=== PATIENT | female | born 2005 | race Native Hawaiian/Other Pacific Islander ===

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

== ENCOUNTER 2023-02-25 09:14 | Outpatient (AMB) | payer MEDICAID, SELFPAY ==
--- NOTE | 2023-02-25 08:30 | A.OFFVIS_ITS ---
Intake VS Expanded 02/25/23 08:33 Height 5 ft 3 in Weight 125 lb BMI 22.1 Intake Visit Reasons: VIDEO PO LSG 04/06/22 Allergies POLLEN Allergy (Intermediate, Uncoded 03/23/22 23:29) Sneezing HPI Nutrition Presentation [place] [facility] [place] Preop weight 207# weight at 3wks PO 184# weight at 5wks 178# weight at 8wks 169 weight at 3.5 months 157# weight 6 MO PO 139# Current weight 125# - she is comfortable at this weight, she has maintained this weight for the last 2 months Reason for consult other (Weight maintenance) Diet Assmnt Details Patient reports feeling great, she has no questions or concerns today. She has a solid understanding of what a healthy nutrition plan looks like post bariatric surgery Breakfast: 2 eggs, slice of bread - patient states the brand I recommended at last appointment but is not sure what it is 1 Fairlife shake or will have a meal wi th protein, vegetable, healthy carb dinner: carrots and veg white rice and chicken Sometimes has a small snack if needed Hydration: 4-5 bottles of water ; she reports her dizziness has subsided since increasing her hydration Vitamins: celebrate MVI daily is consistent with it Exercise: 3-5 days per week bike 400kcal each time or the treadmill, plus weight training as recommended at last appt Diagnosis Nutrition problem #1 overweight/obesity As related to (etiology) #1 excess energy intake and physical inactivity As evidenced by (sign/symptom) #1 high BMI (Improving) Monitoring/Goals Nutrition problem monitoring total energy intake, level of knowledge/skill, total PRO intake, total CHO intake and weight Outcome progress met Learning/Education Readiness to learn excellent Stages of change maintenance Most Recent Diabetes Results: No Data to Display [facility] Surgical History No pertinent past surgical history Family History Mother Asthma Father No problems noted. Brother No problems noted. Brother Asthma Sister Depression Anxiety Social History Household Members: Family Household Members Other:: Mother, 2 brothers Housing: Apartment Are you a primary child care associate teacher to a significant other at home: No Do you presently have visiting nurse or other home services: No Alcohol intake: former Patient Tobacco Use Status: Former Tobacco user Quit Date: 08/2021 Tobacco use type: Cigarette service: No Current occupational status: student Female Reproductive History Menstrual Age of Menarche: 11 Assessment & Plan Assessment & Plan (1) S/P laparoscopic sleeve gastrectomy: Code(s): Z98.84 - Bariatric surgery status Patient Instructions: Patient is in the weight maintenance phase now and able to navigate this on her own. Will schedule next follow-up appointment 6 months from now but patient was encouraged to communicate as needed in the meantime Telehealth Telehealth Location of provider rendering services: practice address Location of patient: address on file (car, not driving, parked ) Patient Identification confirmed using: Name, : Yes Telehealth method: video Patient verbally consented to treatment: Yes Patient verbally consented to billing insurance company: Yes Patient informed of any privacy concerns related to visit: Yes Minutes spent on Phone/Video with Pt.: 10 Coding Level of Care Code Nutr Indiv Subseq ([id number]) Diagnoses S/P laparoscopic sleeve gastrectomy Z98.84 Time Spent (min) 10
[2023-02-25 08:33] VITALS: BMI 22.1
== END 2023-02-25 09:15 | disposition home or self-care (01) ==
LOC: HO.HBS 09:14
PROVIDERS: PCP Pediatrics; Visit Provider Dietitian, Registered
DX: Z98.84 Bariatric surgery status (principal)

== ENCOUNTER → 2023-02-25 09:14 | Outpatient (BNVA) | payer MEDICAID, SELFPAY | PROVIDERS: PCP Pediatrics; Visit Provider Dietitian, Registered | DX: E66.9 Obesity, unspecified (principal); Z98.84 Bariatric surgery status | CPT/HCPCS: 97803 ==

== ENCOUNTER 2023-03-03 13:37 | Outpatient (AMB) | payer MEDICAID, SELFPAY ==
--- NOTE | 2023-03-03 13:41 | MHC.OFFVIS ---
Intake Vital Signs 03/03/23 13:42 Height 5 ft 3 in Weight 122 lb BMI 21.6 BP 100/64 Intake Visit Reasons: Nexplanon Removal Consult Intake Note: patient c/o period lasting 1 month Allergies POLLEN Allergy (Intermediate, Uncoded 03/03/23 13:42) Sneezing Medication List - Last Reconciled 03/03/23 by Kelsey Grewal CNM [celebrate Rajendra +D PO BID] [celebrate mvi PO .qd] etonogestrel (Nexplanon) 68 mg subdermal ONCE Is last menstrual period known: Yes Last menstrual period: 01/14/23 HPI Nexplanon Removal Consult HPI Details Is here because she has been having too much bleeding on the Nexplanon this is her 2nd Nexplanon and she has had this 1 in about a year or so. She bled for about a month earlier in the year and then she bled from mid December to mid January. She is now stopped bleeding. She was sexually active and put up with the bleeding because she needed protection but now she is not sexually active and she would like to just take it out. 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 When I asked her what she would use for control if she became sexually active in the future she said she was considering maybe getting an IUD. Much of the visit was spent discussing contingency plans so that she does not get when she is without a method. Patient eventually decided that she would except the prescription for control pills that she could use if she started having breakthrough bleeding on the Nexplanon again or to start whenever she becomes sexually active. The ideally they would be started at the beginning of a menstrual.. After much discussion of the pros and cons of all methods including pills Depo and both kinds of IUDs and their side effects patient has decided she is wants to take a prescription for control pills that she will have available to her in case she starts bleeding again but we will schedule Nexplanon removal. She also may decide to continue on the pills from there it will be her decision. [facility] Surgical History No pertinent past surgical history Family History Mother Asthma Father No problems noted. Brother No problems noted. Brother Asthma Sister Depression Anxiety Social History Household Members: Family Household Members Other:: Mother, 2 brothers Housing: Apartment Are you a primary date night caregiver to a significant other at home: No Do you presently have visiting nurse or other home services: No Alcohol intake: former Patient Tobacco Use Status: Former Tobacco user Quit Date: 08/2021 Tobacco use type: Cigarette service: No Current occupational status: student Female Reproductive History Menstrual Age of Menarche: 11 Date of last menstrual period: 01/14/23 control method: implanted Physical Exam Vital Signs: Last Vital Signs BP 100/64 03/03/23 13:42 BMI result Body Mass Index 21.6 Const Other: Nexplanon palpable in left arm. Patient has stretch herndon on her arm. She reminded me that she had lost about 100 lb because she had gastric sleeve surgery she lost about 65 lb on her own before the surgery and she has managed to keep off all of the weight and she is eating well and exercising and feeling well. Assessment & Plan Assessment & Plan (1) S/P laparoscopic sleeve gastrectomy: Code(s): Z98.84 - Bariatric surgery status (2) Nexplanon in place: Code(s): Z97.5 - Presence of (intrauterine) contraceptive device (3) control counseling: Code(s): Z30.09 - Encounter for other general counseling and advice on contraception Plan Is here because she has been having too much bleeding on the Nexplanon this is her 2nd Nexplanon and she has had this 1 in about a year or so. She bled for about a month earlier in the year and then she bled from mid December to mid January. She is now stopped bleeding. She was sexually active and put up with the bleeding because she needed protection but now she is not sexually active and she would like to just take it out. 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 When I asked her what she would use for control if she became sexually active in the future she said she was considering maybe getting an IUD. Much of the visit was spent discussing contingency plans so that she does not get when she is without a method. Patient eventually decided that she would except the prescription for control pills that she could use if she started having breakthrough bleeding on the Nexplanon again or to start whenever she becomes sexually active. The ideally they would be started at the beginning of a menstrual.. After much discussion of the pros and cons of all methods including pills Depo and both kinds of IUDs and their side effects patient has decided she is wants to take a prescription for control pills that she will have available to her in case she starts bleeding again but we will schedule Nexplanon removal. She also may decide to continue on the pills from there it will be her decision. She reminded me that she had lost about 100 lb in the past she lost 65 lb on her own before having gastric sleeve surgery and then lost the rest of it after the surgery. She has kept it off and is eating well and exercising and feels very good.. Medications: New desog-e.estradiol/e.estradiol 0.15-0.02 mgx21 /0.01 mg x 5 to start w menses 1 tab PO DAILY 84 tabs 0RF Coding Level of Care Code Est Pt Level 3 (17508) Diagnoses S/P laparoscopic sleeve gastrectomy Z98.[address] Z97.5 control counseling Z30.09
[2023-03-03 13:42] VITALS: BP 100/64; BMI 21.6
== END 2023-03-03 14:11 | disposition home or self-care (01) ==
PROVIDERS: PCP Pediatrics; Visit Provider Advanced Practice Midwife
DX: Z98.84 Bariatric surgery status (principal); Z97.5 Presence of (intrauterine) contraceptive device; Z30.09 Encounter for other general counseling and advice on contraception
CPT/HCPCS: 99213

== ENCOUNTER → 2023-03-03 13:37 | Outpatient (BNVA) | payer MEDICAID, SELFPAY | PROVIDERS: PCP Pediatrics; Visit Provider Advanced Practice Midwife | DX: Z30.09 Encounter for other general counseling and advice on contraception (principal); Z97.5 Presence of (intrauterine) contraceptive device | CPT/HCPCS: 99212 ==

== ENCOUNTER 2023-03-08 10:36 | Outpatient (REF) | payer MEDICAID, SELFPAY ==
[2023-03-08 16:01] LABS: CT PCR NOT DETECTED (Not Detect.); NG PCR NOT DETECTED (Not Detect.)
[2023-03-09 04:06] LABS: Syphilis Screen Nonreactive (Nonreactive)
[2023-03-09 04:26] LABS: HIV AB/AG Nonreactive (Nonreactive); HIV Num 1 0.06 S/CO (0.00-0.99); ~HepC Num1 0.18 S/CO (0.00-0.79); ~Hepatitis C Antibody Nonreactive (Nonreactive)
== END 2023-03-08 10:37 | disposition home or self-care (01) ==
LOC: HO.CHCLDS 10:36
PROVIDERS: Visit Provider Advanced Practice Midwife
DX: Z11.3 Encounter for screening for infections with a predominantly sexual mode of transmission (principal); Z11.4 Encounter for screening for human immunodeficiency virus [HIV]
CPT/HCPCS: 0353U; 86780; 86803; 87389

== ENCOUNTER 2023-07-27 10:53 | Outpatient (AMB) | payer MEDICAID, SELFPAY ==
--- NOTE | 2023-07-27 10:37 | MHC.AMNUTRGE ---
Intake Intake Visit Reasons: (TV) PO LSG 04/06/22 Allergies POLLEN Allergy (Intermediate, Uncoded 03/03/23 13:42) Sneezing HPI Nutrition Presentation Details G 04/06/22 Preop weight 207# weight at 3wks PO 184# weight at 5wks 178# weight at 8wks 169 weight at 3.5 months 157# weight 6 MO PO 139# Current weight 125# - she is comfortable at this weight, she has maintained this weight for the last 6+ months Reason for consult other (Weight maintenance) Diet Assmnt Details Patient reports feeling great, she has no questions or concerns today. She has a solid understanding of what a healthy nutrition plan looks like post bariatric surgery. She is able to alter her intake for the day depending on her preferences and nutritional needs. Breakfast: 2 eggs, slice of bread 1 Fairlife shake or will have a meal with protein, vegetable, healthy carb dinner: carrots and veg white rice and chicken Sometimes has a small snack if needed Hydration: 4-5 bottles of water Vitamins: celebrate MVI daily . she recently went 2 months without her MVI. Has a lab order in the system from November Exercise: 3-5 days per week bike 30-35minutes each time or the treadmill, plus weight training about 15 sets, varies body part Diagnosis Nutrition problem #1 overweight/obesity As related to (etiology) #1 excess energy intake and physical inactivity As evidenced by (sign/symptom) #1 high BMI (Improving) Monitoring/Goals Nutrition problem monitoring total energy intake, level of knowledge/skill, total PRO intake, total CHO intake and weight Outcome progress met Learning/Education Readiness to learn excellent Stages of change maintenance Most Recent Diabetes Results: No Data to Display [facility] Surgical History No pertinent past surgical history Family History Mother Asthma Father No problems noted. Brother No problems noted. Brother Asthma Sister Depression Anxiety Social History Household Members: Family Household Members Other:: Mother, 2 brothers Housing: Apartment Are you a primary veterinarian laboratory animal care to a significant other at home: No Do you presently have visiting nurse or other home services: No Alcohol intake: former Patient Tobacco Use Status: Former Tobacco user Quit Date: 08/2021 Tobacco use type: Cigarette service: No Current occupational status: student Female Reproductive History Menstrual Age of Menarche: 11 Assessment & Plan Assessment & Plan (1) S/P laparoscopic sleeve gastrectomy: Code(s): Z98.84 - Bariatric surgery status Plan get labs done fasting, order is in. Continue exercise. she will f/u with Jose Ramon GAL[facility] Telehealth Telehealth Location of provider rendering services: practice address Location of patient: address on file Patient Identification confirmed using: Name, : Yes Telehealth method: voice only Patient verbally consented to treatment: Yes Patient verbally consented to billing insurance company: Yes Patient informed of any privacy concerns related to visit: Yes Minutes spent on Phone/Video with Pt.: 10 Coding Level of Care Code Nutr Indiv Subseq ([id number]) Diagnoses S/P laparoscopic sleeve gastrectomy Z98.84 Time Spent (min) 10
== END 2023-07-27 10:56 | disposition home or self-care (01) ==
LOC: HO.HBS 10:53
PROVIDERS: PCP Pediatrics; Visit Provider Dietitian, Registered
DX: Z98.84 Bariatric surgery status (principal)

== ENCOUNTER → 2023-07-27 10:53 | Outpatient (BNVA) | payer MEDICAID, SELFPAY | PROVIDERS: PCP Pediatrics; Visit Provider Dietitian, Registered | DX: E66.3 Overweight (principal); Z71.3 Dietary counseling and surveillance; Z98.84 Bariatric surgery status | CPT/HCPCS: 97803 ==

== ENCOUNTER 2023-10-12 11:08 | Outpatient (AMB) | payer MEDICAID, SELFPAY ==
--- NOTE | 2023-10-12 09:56 | A.OFFVIS_ITS ---
VS Expanded 10/12/23 10:00 Height 5 ft 3 in Weight 120 lb 6.4 oz BMI 21.3 Body Fat % 21.3 Body Fat Mass 25.6 Fat Free Mass 94.8 Visceral Fat Rating 4 Body Water % 54 Body Water Mass 65 Muscle Mass/Score 89 Basal Metabolic Rate/Score 1,299 Intake Visit Reasons: (tv) PO LSG 04/06/22 Lubricating Machine Tender Required: No Allergies POLLEN Allergy (Intermediate, Uncoded 03/03/23 13:42) Sneezing Medication List - Last Reconciled 10/12/23 by EL Thompson [celebrate Rajendra +D PO BID] [celebrate mvi PO .qd] desog-e.estradiol/e.estradiol 0.15-0.02 mgx21 /0.01 mg x 5 1 tab PO DAILY etonogestrel (Nexplanon) 68 mg subdermal ONCE HPI Comments Details: 18-year-old female status post sleeve gastrectomy performed on 04/06/2022 returns to the office for 1 year six-month postop follow-up. Weight today is 120.4 lb with a BMI of 21.3. Her initial weight on 12/15/2021 was 241.4 lb. Operative weight was 209.4 lb. She has lost 121 lb or 50.1% total body weight loss since presenting to the program in November of 2021. She has lost 89 lb or 42.5% total body weight loss since surgery. Taking bariatric mvi States that her weight has been stable over the last month. She is happy with the weight she is at. She did not get labs done from November. Meal plan: 2 eggs w 2 sausage belvita snack bar 3 gm pro or fairlife 26 gm rtd shake meal protein and veg not measuring fruit (berries) Drinking 48-64 oz water Exercise plan: PF cardio-treadmill, 20 min, 100 calories PFSH Surgical History No pertinent past surgical history Family History Mother Asthma Father No problems noted. Brother No problems noted. Brother Asthma Sister Depression Anxiety Social History Household Members: Family Household Members Other:: Mother, 2 brothers Housing: Apartment Are you a primary health care recruiter to a significant other at home: No Do you presently have visiting nurse or other home services: No Alcohol intake: former Patient Tobacco Use Status: Former Tobacco user Tobacco use type: Cigarette service: No Current occupational status: student Female Reproductive History Menstrual Age of Menarche: 11 Telehealth Telehealth Telehealth Platform: Telephone Location of provider rendering services: practice address Location of patient: address on file Patient Identification confirmed using: Name, : Yes Telehealth method: voice only Patient verbally consented to treatment: Yes Patient verbally consented to billing insurance company: Yes Patient informed of any privacy concerns related to visit: Yes Minutes spent on Phone/Video with Pt.: 15 Assessment & Plan Assessment & Plan (1) S/P laparoscopic sleeve gastrectomy: Code(s): Z98.84 - Bariatric surgery status Category: Surgical Plan: Encouraged patient to get labs done that were ordered in November. Encouraged her to have vegetables in the morning instead of pearce or sausage. Encouraged the fair life ready to drink shake mid day. Encouraged measuring food portion and avoiding rice or potatoes. Encouraged increased cardiovascular activity and tracking calories with a goal of 250-300 per day. Encouraged to text weekly her weight and with any questions or concerns.
[2023-10-12 10:00] VITALS: BMI 21.3
== END 2023-10-12 11:14 | disposition home or self-care (01) ==
LOC: HO.HBS 11:08
PROVIDERS: PCP Pediatrics; Visit Provider Physician Assistant Surgical
DX: Z71.3 Dietary counseling and surveillance (principal); Z90.3 Acquired absence of stomach [part of]; Z98.84 Bariatric surgery status
CPT/HCPCS: 99213

== ENCOUNTER → 2023-10-12 11:08 | Outpatient (BNVA) | payer MEDICAID, SELFPAY | PROVIDERS: PCP Pediatrics; Visit Provider Physician Assistant Surgical ==

== ENCOUNTER 2023-10-24 09:10 | Outpatient (REF) | payer MEDICAID, SELFPAY ==
[2023-10-24 09:24] LABS: MANUAL DIFF FLAG NO
[2023-10-24 09:57] LABS: Basophils Percent Auto 0.6 % (0-2); Eosinophils Absolute Auto 0.1 X10*3/uL (0.0-0.4); Eosinophils Percent Auto 1.7 % (0-4); Hematocrit 42.1 % (37.0-47.0); Hemoglobin 13.6 g/dl (12.0-16.0); Imm Gran Abs Auto 0.01 X10*3/uL (0.00-0.03); Imm Gran Pct Auto 0.2 % (0.0-0.4); Lymphocytes Absolute Auto 1.8 X10*3/uL (1.2-4.9); Lymphocytes Percent Auto 37.8 % (20-40); Mean Corpuscular HGB Conc 32.3 g/dl (31.0-35.0); Mean Corpuscular Hemoglobin 27.5 pg (27.0-33.0); Mean Corpuscular Volume 85.2 fL (80.0-98.0); Mean Platelet Volume 8.4 fL (9.4-12.3); Monocytes Absolute Auto 0.4 X10*3/uL (0.1-1.2); Monocytes Percent Auto 8.3 % (2-11); Neutrophils Absolute Auto 2.5 x10*3/uL (2.0-8.3); Neutrophils Percent Auto 51.4 % (45-73); Platelet Count 326 X10*3/uL (160-400); Red Blood Count 4.94 X10*6/uL (4.20-5.50); Red Cell Distribution Width 12.6 % (11.0-16.0); White Blood Count 4.8 X10*3/uL (4.8-10.8)
[2023-10-24 10:06] LABS: Estimated Average Glucose 97 mg/dL
[2023-10-24 10:36] LABS: Alanine Aminotransferase 11 U/L (0-31); Albumin Level 4.5 g/dL (3.5-5.0); Alkaline Phosphatase 54 U/L (39-117); Anion Gap 15 (12-20); Aspartate Amino Transferase 16 U/L (5-31); Bilirubin Total 1.5 mg/dL (0.0-1.0); Blood Urea Nitrogen 9 mg/dL (9-16); C Reactive Protein < 0.10 mg/dL (< or = 0.50); Calcium 9.4 mg/dL (8.4-10.2); Carbon Dioxide 28 mmol/L (22-29); Chloride 102 mmol/L (96-108); Cholesterol 144 mg/dL (<200); Estimated Glomerular Filt Rate > 60; Glucose Random 80 mg/dL (60-115); HDL Cholesterol 71 mg/dL (>40); Iron 130 mcg/dL (30-160); LDL Cholesterol Calculated 64 mg/dL (<100); Percent Iron Saturation 50 % (15-50); Potassium 3.7 mmol/L (3.3-5.1); Sodium 141 mmol/L (135-145); Total Iron Binding Capacity 260 mcg/dL (228-428); Total Protein 7.5 g/dL (6.5-8.0); Triglycerides 45 mg/dL (<150); Unsaturated Iron Binding 130 ug/dL
[2023-10-24 10:53] LABS: Ferritin 103 ng/mL (10-122); TSH reflex Free T4 0.78 uIU/mL (0.32-4.0); Vitamin D 25-OH Total 36.3 ng/mL (>30)
[2023-10-24 11:14] LABS: Insulin 9 uU/mL (2-29)
[2023-10-24 11:53] LABS: Folate 13.4 ng/mL (> or = 4.0); Vitamin B12 529 pg/mL (200-900)
[2023-10-27 08:56] LABS: Zinc 67 mcg/dL (60-130)
[2023-10-28 13:47] LABS: Vitamin A 39 mcg/dL (38-98)
[2023-11-01 17:38] LABS: Vitamin B1 10 nmol/L (8-30)
== END 2023-10-24 09:11 | disposition home or self-care (01) ==
LOC: HO.LAB 09:10
PROVIDERS: Visit Provider Physician Assistant Surgical
DX: Z98.84 Bariatric surgery status (principal)
CPT/HCPCS: 36415; 80053; 80061; 82306; 82607; 82728; 82746; 83036; 83525; 83540; 84425; 84443; 84590; 84630; 85025; 86140

== ENCOUNTER 2024-01-24 22:22 | Emergency (ER) | payer OTHER, MEDICAID, SELFPAY ==
[2024-01-24 22:24] VITALS: BP 112/76; PULSE 64; RESP 16; TEMP 36.7; O2SAT 98; BMI 20.4
--- NOTE | 2024-01-24 23:26 | ED.HEATRA ---
HPI - Head Injury General Chief complaint: Wound/Laceration Stated complaint: head laceration Time Seen by Provider: 01/24/24 22:55 Source: patient Mode of arrival: ambulatory Limitations: no limitations History of Present Illness HPI Narrative: Patient is a 18-year-old female presents emergency department for evaluation. She has a care provider at a local [facility], she reports that she was attempting to adjusted bed that requires a metal hand crank, it suddenly came loose and she accidentally struck be top of head with it. She denies any loss consciousness. She endorses having some localized discomfort. No active bleeding. She denies use of anticoagulants or known coagulation disorders. Denies dizziness, lightheadedness, vision changes, neck pain, neck stiffness. Reports she had a tetanus vaccination within the past 5 years. Related Data Home Medications ?Medication ?Instructions ?Recorded ?Confirmed etonogestrel 68 mg subdermal 68 mg subdermal ONCE 10/05/21 10/12/23 implant (Nexplanon) celebrate Rajendra +D PO BID 12/03/22 10/12/23 celebrate mvi PO .qd 12/03/22 10/12/23 Previous Rx's ?Medication ?Instructions ?Recorded desogestrel-e.estradiol 0.15 1 tab PO DAILY #84 tabs 03/03/23 mg-0.02 mg(21)/e.estrad 0.01 mg(5) tablet Allergies Allergy/AdvReac Type Severity Reaction Status Date / Time POLLEN Allergy Intermediate Sneezing Uncoded 01/24/24 22:26 Review of Systems Review of Systems: Yes all other systems are reviewed and are negative PMFSH Past Medical History Attestation statement: The following information was validated with the patient. Source: old records reviewed Surgical History No pertinent past surgical history Family History Family History Mother Asthma Father No problems noted. Brother No problems noted. Brother Asthma Sister Depression Anxiety Social History Social History Household Members: Family Household Members Other:: Mother, 2 brothers Housing: Apartment Are you a primary acute care nursing assistant to a significant other at home: No Do you presently have visiting nurse or other home services: No Alcohol intake: former Patient Tobacco Use Status: Former Tobacco user Tobacco use type: Cigarette Advance Directives: No Advance Directives Information Provided: No Do you have a plan to hurt others: No Plan service: No Current occupational status: student Physical Exam Vital Signs: Vital Signs: Last Vital Signs Temp 98.1 F 01/24/24 22:24 Pulse 64 01/24/24 22:24 Resp 16 01/24/24 22:24 BP 112/76 01/24/24 22:24 Pulse Ox 98 01/24/24 22:24 O2 Del Method Room Air 01/24/24 22:24 BMI result Body Mass Index 20.4 Appearance: Alert.?Oriented to person, place and time. No acute distress.?Normal affect. Head: Normocephalic. 0.3 cm laceration to right frontotemporal scalp with no active bleeding over a hematoma Eyes: Pupils equal, round and reactive to light. EOMI. Conjunctiva and sclera normal? No Gastelum sign noted. No raccoon eyes noted ENT: No septal hematoma, nares patent bilaterally. External auditory canal normal tympanic membrane pearly jara and intact bilaterally. Dentition normal, no fractured teeth. No lesions or lacerations of oropharynx. Uvula midline. Moist mucous membranes. Neck: Normal inspection.? Neck supple.??No palpable tenderness, step-off, deformities. CVS: Heart sounds normal. Normal heart rate and rhythm.? Pulses normal.?? Respiratory: No respiratory distress.? Lung sounds clear to auscultation bilaterally?? Skin: Skin warm and dry.? Normal skin color.? Extremities: No lower extremity edema.? Neuro: Moves all extremities spontaneously. Sensation intact bilaterally. CN II-XII intact. No focal neuro deficits. Medications Administered Discontinued Medications Generic Name Dose Route Start Last Admin Trade Name Freq PRN Reason Stop Dose Admin Acetaminophen 975 mg 01/24/24 22:29 01/24/24 23:41 Acetaminophen 325 Mg Tablet PO 01/24/24 22:30 975 mg ONCE ONE Administration Medical Decision Making Medical Decision Making [facility] Narrative: Patient is a 18-year-old female who presents emergency department for evaluation after head injury as per HPI. No loss of consciousness. No focal neurological deficits. Has a small scalp laceration overlying a hematoma, that does not require repair with yohana or sutures at this time. No active bleeding. Tetanus vaccination is up-to-date. Coch[place] CT head rule negative, would defer CT imaging at this time, unlikely ICH, SDH, no palpable skull fracture, states was not a hard strike to the head.. Discussed strict return precautions, signs and symptoms of concussion to monitor for, outpatient follow-up with PCP/workman's comp. All questions answered. Stable for discharge Differential Diagnosis Differential Diagnoses: The differential diagnosis associated with the presentation includes (See narrative above) External Record Review External record reviewed: Outpatient record Tests considered The following testing was considered but not selected: See narrative above Prescription Management I considered prescription management with: Pain Medication (Acetaminophen/ibuprofen) Discharge Plan Discharge Clinical Impression: Acute head injury without loss of consciousness, Contusion of scalp Patient Disposition: Home, Self-Care Instructions: Head Injury (ED), Scalp Contusion in Adults (ED) Prescriptions: No Action Nexplanon 68 mg implant 68 mg subdermal ONCE celebrate mvi PO .qd celebrate Rajendra +D PO BID desog-e.estradiol/e.estradiol 0.15-0.02 mgx21 /0.01 mg x 5 tablet 1 tab PO DAILY Qty: 84 0RF Rx Instructions: to start w menses Referrals: Physician,Unknown J [Primary Care Provider] - Print Language: [place]
[2024-01-24] MEDS: Acetaminophen 325 MG TABLET 975 MG PO (23:41)
[2024-01-25] VITALS: BP 100/61; PULSE 53; RESP 16; TEMP 36.6; O2SAT 100
[2024-01-25 00:44] VITALS: BP 100/61; PULSE 53; RESP 16; TEMP 36.6; O2SAT 100
== END 2024-01-25 01:09 | disposition home or self-care (01) ==
PROVIDERS: Emergency Provider Emergency Medicine Emergency Medical Services
DX: S00.03XA Contusion of scalp, initial encounter (principal); S09.90XA Unspecified injury of head, initial encounter; R51.9 Headache, unspecified; Y29.XXXA Contact with blunt object, undetermined intent, initial encounter; Y93.89 Activity, other specified; Y92.89 Other specified places as the place of occurrence of the external cause; Y99.8 Other external cause status; Z79.899 Other long term (current) drug therapy; Z87.891 Personal history of nicotine dependence
CPT/HCPCS: 99283

== ENCOUNTER 2024-04-11 14:23 | Outpatient (AMB) | payer MEDICAID, SELFPAY ==
--- NOTE | 2024-04-11 14:25 | MHC.OFFVISWM ---
VS Expanded 04/11/24 14:35 BP 109/59 L Blood Pressure Location Rt brachial Blood Pressure Position Sitting Pulse 72 Pulse Source Pulse Oximeter Temp 96.2 F L Temperature Source Temporal Artery Scan Pulse Oximetry 100 Oxygen Delivery Method Room Air Height 5 ft 3 in Weight 118 lb 12.8 oz BMI 21.0 Body Fat % 23.0 Body Fat Mass 27.4 Fat Free Mass 91.2 Visceral Fat Rating 1.0 Body Water % 55.6 Body Water Mass 66.0 Muscle Mass/Score 86.6 Basal Metabolic Rate/Score 1,296 Intake Visit Reasons: (ov) PO LSG 04/06/22 Computer Field Technician Required: No Allergies POLLEN Allergy (Intermediate, Uncoded 01/24/24 22:26) Sneezing Medication List - Last Reconciled 04/11/24 by EL Thompson [celebrate Rajendra +D PO BID] [celebrate mvi PO .qd] HPI Comments Details: 18-year-old female status post sleeve gastrectomy performed on 04/06/2022 returns to the office for 2 year postop follow-up. Weight today is 118.8 lb with a BMI of 21. Her initial weight on 12/15/2021 was 241.4 lb. Operative weight was 209.4 lb. She has lost 122.6 lb or 50.7% total body weight loss since presenting to the program in November of 2021. She has lost 90.6 lb or 43.2% total body weight loss since surgery. Taking bariatric mvi States that her weight has been stable over the last month. She is happy with the weight she is at. She is eating more vegetables. Overall doing very well and has no complaints today. Meal plan: 2 eggs w 2 sausage belvita snack bar 3 gm pro or fairlife 26 gm rtd shake lunchables protein, rice, chicken, pasta, salad fruit (berries) Drinking 48-64 oz water Exercise plan: PF cardio-treadmill, 5 days per week, weights and treadmill/bike, 250 calories Any post op complications: none AVERY: never DM: never HTN: never Hyperlipidemia: never GERD:?0-5 scale ??0 = no symptoms ??1 = symptoms noticeable but not bothersome 2 =symptoms bothersome but not daily ? 3 = symptoms bothersome and daily 4 = symptoms affect daily activities 5 = symptoms are incapacitating, unable to do daily activities ? How bad is the heartburn: 0 ? Heartburn while lying down: 0 ? Heartburn when standing up: 0 ? Heartburn after meals: 0 ? Does heartburn change your diet: 0 ? Does heartburn wake you up from sleep: 0 ? Do you have difficulty swallowin ? Do you have pain with swallowin ? If you take medicine for your reflux, does this affect your daily life: 0 Satisfaction with present condition - satisfied or not satisfied: satisfied [facility] Surgical History (Updated 04/11/24 @ 14:30 by Fang Garza CMA) S/P laparoscopic sleeve gastrectomy Family History Mother Asthma Father No problems noted. Brother No problems noted. Brother Asthma Sister Depression Anxiety Social History Household Members: Family Household Members Other:: Mother, 2 brothers Housing: Apartment Are you a primary assurance services manager health care to a significant other at home: No Do you presently have visiting nurse or other home services: No Alcohol intake: former Patient Tobacco Use Status: Former Tobacco user Tobacco use type: Cigarette service: No Current occupational status: student Female Reproductive History Menstrual Age of Menarche: 11 Physical Exam Const General: cooperative and no acute distress Orientation/consciousness: patient oriented x3 Resp Effort & Inspection: normal respiratory effort Auscultation: clear to auscultation bilaterally Cardio Rate: regular rate Rhythm: regular rhythm GI Inspection: Yes normal to inspection and Yes incision (well healed) Palpation (GI): Soft to palpation and no masses Neuro General: patient oriented x3 Assessment & Plan Assessment & Plan (1) S/P laparoscopic sleeve gastrectomy: Code(s): Z98.84 - Bariatric surgery status Category: Surgical Plan: Patient is doing very well. She has achieved and maintained a healthy weight. Continue current meal plan. Follow-up in the office in 1 year. I have ordered yearly labs. Encouraged to text with any questions or concerns. Orders: Orders Insulin Today E53.8 - Deficiency of other specified B group vitamins, Z98.84 - Bariatric surgery status Hemoglobin A1c Today E53.8 - Deficiency of other specified B group vitamins, Z98.84 - Bariatric surgery status Comprehensive Met. Panel Today E53.8 - Deficiency of other specified B group vitamins, Z98.84 - Bariatric surgery status Zinc Today E53.8 - Deficiency of other specified B group vitamins, Z98.84 - Bariatric surgery status Vitamin A Today E53.8 - Deficiency of other specified B group vitamins, Z98.84 - Bariatric surgery status TSH reflex Free T4 Today E53.8 - Deficiency of other specified B group vitamins, Z98.84 - Bariatric surgery status Ferritin Today E53.8 - Deficiency of other specified B group vitamins, Z98.84 - Bariatric surgery status Vitamin D 25-OH Total Today E53.8 - Deficiency of other specified B group vitamins, Z98.84 - Bariatric surgery status Complete Blood Count Auto Diff Today E53.8 - Deficiency of other specified B group vitamins, Z98.84 - Bariatric surgery status Lipid Panel Today E53.8 - Deficiency of other specified B group vitamins, Z98.84 - Bariatric surgery status IRON PROFILE Today E53.8 - Deficiency of other specified B group vitamins, Z98.84 - Bariatric surgery status Vitamin B12 and Folate Today E53.8 - Deficiency of other specified B group vitamins, Z98.84 - Bariatric surgery status C Reactive Protein Today E53.8 - Deficiency of other specified B group vitamins, Z98.84 - Bariatric surgery status Vitamin B1 Today E53.8 - Deficiency of other specified B group vitamins, Z98.84 - Bariatric surgery status
[2024-04-11 14:35] VITALS: BP 109/59; PULSE 72; TEMP 35.7; O2SAT 100; BMI 21.0
== END 2024-04-11 14:46 | disposition home or self-care (01) ==
PROVIDERS: PCP Pediatrics; Visit Provider Physician Assistant Surgical
DX: E53.8 Deficiency of other specified B group vitamins (principal); Z98.84 Bariatric surgery status
CPT/HCPCS: 99213

== ENCOUNTER → 2024-04-11 14:23 | Outpatient (BNVA) | payer MEDICAID, SELFPAY | PROVIDERS: PCP Pediatrics; Visit Provider Physician Assistant Surgical | DX: E53.8 Deficiency of other specified B group vitamins (principal); Z71.3 Dietary counseling and surveillance; Z98.84 Bariatric surgery status | CPT/HCPCS: 99212 ==

== ENCOUNTER 2024-06-08 09:21 | Outpatient (REF) | payer MEDICAID, SELFPAY ==
--- OUTSIDE RECORDS SUMMARY | 2024-06-08 11:39 | XMS_ITS | Encounter Summary ---
Author Organization [employer] Address [address] [place] [address] Care Team Providers Care Nurse Infection Control Name Role Phone Barbi Barkley NP Primary Care Provider [phone] Encounter Details Date Type Department Care Team (Latest Contact Info) Description 06/01/2024 Travel Social History Tobacco Use Types Packs/Day Years Used Date Smoking Tobacco: Never Smokeless Tobacco: Never Alcohol Use Standard Drinks/Week Comments Yes 0 (1 standard drink = 0.6 oz pur e alcohol) occasionally on holidays Depression Answer Date Recorded Patient Health Questionnaire-9 Score 8 02/15/2024 Patient Health Questionnaire-9 Score 8 02/15/2024 Last PHQ-9: Questionnaire Data Not on file 1 Housing Stability Answer Date Recorded What is your housing situation today? I have lynne bhatti 02/07/[address] you li ve. Do you have problems with any of the following? None of the above 02/07/2024 Food Insecurity Answer Date Recorded Within the past 12 months, y ou worried that your food would run out before you got money to buy more: Never True 02/07/2024 Within the past 12 months,th e food you bought just didn't last and you didn't have enough money to get more: Never True 12/2023 Transportation Answer Date Recorded In the past 12 months, has l ack of transportation kept you from medical appts, meetings, work or from getting things needed for daily living? No 02/07/2024 Utilities Answer Date Recorded In the past 12 months, has t he electric, gas, oil or water company threatened to shut off services in your home? No 02/07/2024 Depression Answer Date Recorded Patient Health Questionnaire-2 Score 2 02/15/2024 Internet Access Answer Date Recorded Internet Access Q1 Yes 02/07/2024 Internet Access Q2 Not on file 02/07/2024 Comments No Sex and Gender Information Value Date Recorded Sex Assigned at Female 03/01/2022 10:19 AM EDT Legal Sex Female 10:19 AM EDT Gender Identity Female 03/01/2022 10:19 AM EDT Sexual Orientation Straight 03/01/2022 10 :19 AM EDT documented as of this encounter Plan of Treatment Upcoming Encounters Date Type Department Care Team (Late st Contact Info) Description 08/17/2024 11:00 AM EDT Office Visit [facility] [address] [place] [address] Barbi Barkley NP [address] [place] [address] documented as of this encounter Visit Diagnoses Not on filedocumented in this encounter Additional Health Concerns Assessment Noted Time PHQ-9 Depression Total Score: 8 02/15/20 24 3:01 PM EDT documented as of this encounter Care Teams Nurse Infection Control Relationship Specialty Start Date End Date Barbi Barkley NP [address] [place] [address] PCP - General Family Medicine 02/24/23 documented as of this encounter
--- OUTSIDE RECORDS SUMMARY | 2024-06-08 11:40 | XMS_ITS | Clinical Summary ---
Demographics Address [address] [place] [address] Mobile Phone Work Phone Home Phone Email Address Preferred Language en Marital Status Single Jainism Affiliation Unknown Race Other Race Ethnic Group or Author Organization [employer] Address [address] [place] [address] Care Team Providers Care Medical Scientific Liaison Name Role Phone Barbi Barkley NP Primary Care Provider [phone] Allergies No known active allergies Medications No known medications Active Problems Problem Noted Date Diagnosed Date Routine health maintenance 05/03/2024 Assessment & Plan (05/03/2024 11:38 AM EST): -age appropriate screening and immunizations up to date (STI screening) -low cardiovascular risk -mental health screening positive for depression and anxiety -healthy social behaviors encouraged -anticipatory guidance reviewed: diet, exercise Dizziness 05/03/2024 Assessment & Plan (05/03/2024 11:37 AM EST): -etiology is unclear -labs ordered to determine probable cause -encouraged to consume healthy meals 3x per day and maintain adequate fluid intake -advised slow position changes -continual monitoring advised with detailed attention to events preceding her symptoms -further work up/intervention pending lab results Anxiety and depression 05/03/2024 Assessment & Plan (05/03/2024 11:40 AM EST): -Patient Health Questionnaire-9 Score: 8 (02/15/2024 3:01 PM) Patient Health Questionnaire-2 Score: 2 (02/15/2024 3:01 PM) Thoughts that you would be better off or hurting yourself in some way: Not at all (02/15/2024 3:01 PM) -APPLE-7 Total Score: 6 (02/15/2024 3:01 PM) -patient declined further intervention at this time -discussed benefits of engaging in gentle yoga practices, meditation, deep breathing and journaling along with physical activity to aid in symptom improvement -follow-up 6 months or sooner as needed Allergic rhinitis 03/14/2012 06/01/2023 Encounters Date Type Department Care Team Description 06/01/2024 9:45 AM EST Office Visit [facility] [address] [place] [address] Radha Preston, OD 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C (98.8 ??F) 02/15/2024 2:11 PM ED T Respiratory Rate 22 02/15/2024 2:11 PM EDT Oxygen Saturation 92% 02/15/2024 2:11 PM EDT Inhaled Oxygen Concentration - - Weight 52.3 kg (115 lb 6.4 oz) 02/15/2024 2:11 P M EDT Height 160 cm (5' 3 ) 02/15/2024 2:11 PM EDT Body Mass Index 20.44 02/15/2024 2:11 PM EDT Plan of Treatment Upcoming Encounters Date Type Department Care Team (Late st Contact Info) Description 08/17/2024 11:00 AM EDT Office Visit [facility] [address] [place] [address] Barbi Barkley NP [address] [place] [address] Health Maintenance Due Date Last Done Comments Family Planning (PISQ) 2018 COVID-19 Vaccine ( season) 2024 11/18/2020, 10/28/2020 Chlamydia and Gonorrhea Screening 03/08/2024 03/08/2023 Pap Smear 2024 SDOH Screening 02/06/2025 02/07/2024 Alcohol/Substance Use Screening 02/14/2025 02/15/2024 Depression Screening 02/14/2025 02/15/2024, 02/15/20 24 DTaP/Tdap/Td Vaccines (7 - Td or Tdap) 05/28/2025 05/28/2015, 01/26/2008, 08/02/2005, Additional history exists Tobacco Screening 06/01/2025 06/01/2024 Lipid Panel 06/19/2025 06/19/2020 Zoster Vaccines (1 of 2) 2053 RSV Patients and Patients Aged 60 years or older (1 - 1-dose 75+ series) 2078 Hepatitis B Vaccines Completed 07/29/2004, 2003, 2003 HIB Vaccines Completed 10/30/2004, 08/31, 2003 Pneumococcal Vaccine: Pediatrics (0 to 5 Years) and At-Risk Patients (6 to 49) Years) Aged Out 10/30/2004, 2003 No longer eligibl e based on patient's age to complete this topic IPV Vaccines Completed 01/26/2008, 07/02, 2003, Additional history exists Hepatitis A Vaccines Completed 03/16/2013, 01/28/20 10 HPV Vaccines Completed 05/28/2015, 04/01, 03/16/2013 Meningococcal Vaccine Completed 05/13/2020, 016 HIV Screening Completed 03/08/2023 Hepatitis C Screening Completed 03/08/2023 Influenza Vaccine Completed 02/15/2024, , 02/13/2020, Additional history exists RSV under 20 months Aged Out No longe r eligible based on patient's age to complete this topic Rotavirus Vaccines Aged Out No longer eligible based on patient's age to complete this topic Procedures Procedure Name Priority Date/Time Associated Diagnosis Comments HEPATITIS C AB W/REFL TO HCV RNA, QN, PCR Routine 03/08/2023 10:46 AM EST Encntr screen for infections w sexl mode of transmiss HIV 1/2 ANTIGEN/ANTIBODY, FOURTH GENERATION W/RFL Routine 03/08/2023 10:46 AM EST Encntr screen for infections w sexl mode of transmiss CHLAMYDIA/N. GONORRHOEAE RNA, TMA, UROGENITAL Routine 03/08/2023 10:31 AM EST Encntr screen for infections w sexl mode of transmiss LIPID PANEL, STANDARD Routine 06/19/2020 1:04 PM EST from Last 3 Months or Most Recently Relevant to Health Maintenance Results * Hepatitis C Antibody with Reflex to HCV, RNA, Quantitative, Real-Time PCR (03/08/2023 10:46 AM EST) Hepatitis C Antibody Nonreactive Nonreactive [facility] Comment:Antibodies to HCV no t detected; does not exclude early acuteHCV infection. Blood Venous blood specimen / Unknown 03/08/2023 10:46 AM EST 03/08/2023 2:25 PM EST Lory GRANT LAB BLOOD ORDERABLES Katharina zabala Result [facility] [address] [place] [phone] * HIV-1/2 Antigen and Antibodies, Fourth Generation, with Reflexes (03/08/2023 10:46 AM EST) HIV AB/AG Nonreactive Nonreactive [facility] Comment:HIV-1 p24 Ag and/or HIV-1/HIV-2 Ab not detected.A test result that is nonreactive does not exclude thepossibility of exposure to or infection with HIV-1 and/orHIV-2. Nonreactive results in this assay for individualswith prior exposure to HIV-1 and/or HIV-2 may be due toantigen and antibody levels that are below the limit ofdetection of this assay.The Cuciniale HIV Ag/Ab Combo assay result andsupplemental assay results should be interpreted inconjunction with the patient's clinical presentation,history and other laboratory results. If the results areinconsistent with clinical evidence, additional testing issuggested to confirm the result. Blood Venous blood specimen / Unknown 03/08/2023 10:46 AM EST 03/08/2023 2:25 PM EST Lory GRANT LAB BLOOD ORDERABLES Katharina zabala Result [facility] [address] [place] [address] [phone] * Chlamydia/N. Gonorrhoeae RNA, TMA, Urogenitial (03/08/2023 10:31 AM EST) CT PCR NOT DETECTED Not Detect. [facility] Comment:A not detected test result does not exclude the possibilityof infection because test results can be affected byimproper specimen collection, concurrent antibiotic therapy,or the number of organisms in the specimen which may bebelow the sensitivity of the test. As with many diagnostictests, results from the Xpert CT/NG assay should beinterpreted in conjunction with other laboratory andclinical data available to the clinician.Xpert CT/NG performance has not been evaluated in patientsless than 14 years of age. The assay should not be used forthe evaluationof suspected sexual abuse or for other medico-legalindications. Additional testing is recommended in anycircumstance when false positive or false negative resultscould lead to adverse medical, social or psychologicalconsequences. NG PCR NOT DETECTED Not Detect. [facility] Comment:A not detected test result does not exclude the possibilityof infection because test results can be affected byimproper specimen collection, concurrent antibiotic therapy,or the number of organisms in the specimen which may bebelow the sensitivity of the test. As with many diagnostictests, results from the Xpert CT/NG assay should beinterpreted in conjunction with other laboratory andclinical data available to the clinician.Xpert CT/NG performance has not been evaluated in patientsless than 14 years of age. The assay should not be used forthe evaluationof suspected sexual abuse or for other medico-legalindications. Additional testing is recommended in anycircumstance when false positive or false negative resultscould lead to adverse medical, social or psychologicalconsequences. Urine (Urine, Random) 03/08/2023 10:31 AM EST 03/08/2023 2:23 PM EST Narrative [facility] - 03/08/2023 4:01 PM EST Urine us Lory Shi [facility] MICROBIOLOGY - GENERA L ORDERABLES Final Result Performing Organization Address [facility]/ZIP Co de Phone Number [facility] [address] [place] [address] [phone] * (ABNORMAL) LIPID PANEL, STANDARD (06/19/2020 1:04 PM EST) Chol/HDLC Ratio 3.3 <5.0 (calc) [facility] Cholesterol, Total 174(H) <170 mg/dL [facility] HDL Cholesterol 53 >45 mg/dL [facility] LDL Cholesterol 100 <110 mg/dL (calc) [facility] Comment: LDL-C is now calculated using the Jose ?? calculation, which is a validated novel method providing ?? better accuracy than the Friedewald equation in the ?? estimation of LDL-C. ?? Fan BENZ et al. KEON. 2013;310(19): 6480-6027 ?? (http://education.Creactives/faq/LVD136) Non-HDL Cholesterol 121(H) <120 mg/dL (calc) [facility] Comment: For patients with diabetes plus 1 major ASCVD risk ?? factor, treating to a non-HDL-C goal of <100 mg/dL ?? (LDL-C of <70 mg/dL) is considered a therapeutic ?? option. Triglycerides 109(H) <90 mg/dL [facility] 06/19/2020 1:04 PM EST us Pepe Jack MD LAB BLOOD ORDERABLES Final Resu lt [facility] [address] from Last 3 Months or Most Recently Relevant to Health Maintenance [facility] Care Teams Medical Scientific Liaison Relationship Specialty Start Date End Date Barbi Barkley NP [address] [place] [phone] PCP - General Family Medicine 02/24/23
--- OUTSIDE RECORDS SUMMARY | 2024-06-08 11:40 | XMS_ITS | Encounter Summary ---
Author Organization [employer] Address [address] [place] [address] Care Team Providers Care Manual Machinist Name Role Phone Barbi Barkley NP Primary Care Provider [phone] Encounter Details Date Type Department Care Team (Latest Contact Info) Description 05/26/2024 Travel Social History Tobacco Use Types Packs/Day [...] Description 08/17/2024 11:00 AM EDT Office Visit [facility] [address] [place] [address] Barbi Barkley NP [address] [place] [address] documented as of this encounter Visit Diagnoses Not on filedocumented in this encounter Additional Health Concerns Assessment Noted Time PHQ-9 Depression Total Score: 8 02/15/20 24 3:01 PM EDT documented as of this encounter Care Teams Manual Machinist Relationship Specialty Start Date End Date Barbi Barkley NP [address] [place] [address] PCP - General Family Medicine 02/24/23 documented as of this encounter
--- OUTSIDE RECORDS SUMMARY | 2024-06-08 11:40 | XMS_ITS | Encounter Summary ---
Author Organization [employer] Address [address] [facility] [address] [place] [address] Care Team Providers Care Time Clock Inspector Name Role Phone Filippo Barbi JARRED Primary Care Provider [phone] Encounter Details Date Type Department Care Team (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 female. HPI Patient requests ocular health assessment both eyes (OU). Pt denies any visual or ocular concerns CHAZ: 4+ years Last edited by Radha Preston, MARK on 06/01/2024 1:11 PM. No current outpatient medications on file. No current facility-administered medications for this visit. Past Medical History: Diagnosis Date Status post sleeve gastrectomy 05/07/2022 Past Surgical History: Procedure Laterality Date SLEEVE GASTROPLASTY 04/2022 Family History Family history unknown: Yes Tobacco Use: Low Risk (06/01/2024) Tobacco Smoking Tobacco Use: Never Smokeless Tobacco Use: Never Passive Exposure: Not on file No Known Allergies ROS Positive for: Eyes Negative for: Constitutional, Gastrointestinal, Neurological, Skin, Genitourinary, Musculoskeletal,HENT, Endocrine, Cardiovascular, Respiratory, Psychiatric, Allergic/Imm, Heme/Lymph Last edited by Radha Preston, MARK on 06/01/2024 9:57 AM. Base Eye Exam Visual Acuity (Snellen - Linear) Right Left Dist sc 20/20 20/20 Tonometry ([facility] , 10:06 AM) Right Left Pressure 19 21 Pupils Pupils APD Right PERRL None Left PERRL None Visual Short (Counting fingers) Left Right Full Full Extraocular Movement Right Left Full Full Neuro/Psych Oriented x3: Yes Slit Lamp and Fundus Exam External Exam Right Left External Normal Normal Slit Lamp Exam Right Left Lids/Lashes Clean and clear Clean and clear Conjunctiva/Sclera White and quiet White and quiet Cornea Clear Clear Anterior Chamber Deep and quiet, angles open gr 4 Deep and quiet, angles open gr 4 Iris Flat, round Flat, round Lens Clear Clear Fundus Exam Right Left Vitreous Clear, (-) schaffers sign Clear, (-) schaffers sign Disc [place] and healthy [place] and healthy C/D Ratio Vertical 0.60 0.55 C/D Ratio Horizontal 0.60 0.55 Macula Flat, even pigmentation Flat, even pigmentation Vessels AV 2/3, normal course and caliber AV 2/3, normal course and caliber Periphery Extensive snail tracking all inferior views, no holes/tears/detachments 360 Extensive snail tracking all inferior views, no holes/tears/detachments 360 Refraction Manifest Refraction (Subjective) Sphere Cylinder Dist VA Right [place] Sphere 20/20 Left +0.25 Sphere Assessment and Plan Diagnoses and all orders for this visit: Snail-track retinal degeneration of both eyes - Discussed symptoms of retinal detachment and to RTC immediately if flashes/floaters/curtains overvision occur Hyperopia, left - No Rx needed at this time RTC in 1 year for comprehensive eye exam or soon as needed Radha Preston, OD 06/01/2024, 1:11 PM documented in this encounter Plan of Treatment Upcoming Encounters Date Type Department Care Team (Late st Contact Info) Description 08/17/2024 11:00 AM EDT Office Visit [facility] [address] [place] [address] Barbi Barkley NP [address] [place] [address] documented as of this encounter Visit Diagnoses Diagnosis Snail-track retinal degeneration of both eyes- Primary Hyperopia, left documented in this encounter Additional Health Concerns Assessment Noted Time PHQ-9 Depression Total Score: 8 02/15/20 24 3:01 PM EDT documented as of this encounter Care Teams Time Clock Inspector Relationship Specialty Start Date End Date Barbi Barkley NP [address] [place] [address] PCP - General Family Medicine 02/24/23 documented as of this encounter
[2024-06-08 17:59] LABS: Bacterial Vaginosis PCR NEGATIVE (Negative); Candida Group PCR DETECTED (Not Detect); Candida glab krusei PCR NOT DETECTED (Not Detect); Trichomonas vaginalis PCR NOT DETECTED (Not Detect)
[2024-06-08 18:31] LABS: CT PCR NOT DETECTED (Not Detect.); NG PCR NOT DETECTED (Not Detect.)
== END 2024-06-08 09:22 | disposition home or self-care (01) ==
LOC: HO.LAB 09:21
PROVIDERS: PCP Pediatrics; Visit Provider Advanced Practice Midwife
DX: N89.8 Other specified noninflammatory disorders of vagina (principal); Z20.2 Contact with and (suspected) exposure to infections with a predominantly sexual mode of transmission
CPT/HCPCS: 81515; 87491; 87591; 99212

== ENCOUNTER → 2024-06-08 09:21 | Outpatient (AMB) ==
--- NOTE | 2024-06-08 09:26 | A.OFFVIS_ITS ---
Vital Signs 06/08/24 09:26 Height 5 ft 3 in Weight 126 lb BMI 22.3 BP 110/62 Intake Visit Reasons: vaginal discharge Transformer Builder Required: No Transformer Builder Services: Transformer Builder Present Information Interpreted: clinical only Digital Media Planner: Digital Media Planner Present Allergies POLLEN Allergy (Intermediate, Uncoded 06/08/24 09:27) Sneezing Medication List - Last Reconciled 06/08/24 by Kelsey Grewal, RANDEE [celebrate Rajendra +D PO BID] [celebrate mvi PO .qd] Is last menstrual period known: Yes Last menstrual period: 05/09/24 HPI HPI vaginal discharge: Details: Patient is here because she has been having a greenish discharge it just is bothering her been there for about the last week she had been tested for STIs by swabs that she did at the STI clinic here at the [facility] and she says everything was negative but she wants this discharge checked. She has not been sexually active since about the last month she has not planning to be with anybody at the moment she had a Nexplanon and she says I removed it in April of 2023 and she remembers the procedure well and that the lidocaine hurt but everything else was fine. She said she sometimes would take the control pills that I gave her but then she would forget so mostly she did not take them and she was not contraceptive thing the last time she was active. She feels like her periods about to come her last period was May 09 she is getting cramping like it is about to come. PFSH Surgical History S/P laparoscopic sleeve gastrectomy Family History Mother Asthma Father No problems noted. Brother No problems noted. Brother Asthma Sister Depression Anxiety Social History Household Members: Family Household Members Other:: Mother, 2 brothers Housing: Apartment Are you a primary career development associate to a significant other at home: No Do you presently have visiting nurse or other home services: No Alcohol intake: former Patient Tobacco Use Status: Former Tobacco user Tobacco use type: Cigarette service: No Current occupational status: student Female Reproductive History Menstrual Age of Menarche: 11 Duration of menses: 3-5 days Date of last menstrual period: 05/09/24 control method: none Total pregnancies: 0 Physical Exam Vital Signs: Last Vital Signs BP 110/62 06/08/24 09:26 BMI result Body Mass Index 22.3 Other: External exam within normal limits vagina is slightly reddened as is her nulliparous cervix. Years a cottage cheesy discharge with a slight green color consistent with yeast.. Assessment & Plan Assessment & Plan (1) S/P laparoscopic sleeve gastrectomy: Comment: Patient has done very well keeping the weight off and she does go to the gym and she tries to eat healthy she has lab work to do her bariatric provider's and I reminded her to get it done. Code(s): Z98.84 - Bariatric surgery status Category: Surgical (2) Yeast infection of the vagina: Comment: Teaching done. We will treat with miconazole 7 discussed where to get OTC Rx if insurance does not cover. Code(s): B37.31 - Acute candidiasis of vulva and vagina Category: Medical (3) Encounter for screening examination for sexually transmitted disease: Code(s): Z11.3 - Encounter for screening for infections with a predominantly sexual mode of transmission Category: Medical (4) control counseling: Comment: Teaching and discussion of an unintended discussed. Recommend condom use at the very least offered and sent Rx for B. discussed her current goals./patient has clear memory of me removing the Nexplanon at a scheduled Nexplanon removal visit which was scheduled for 04/22/2023 that visit does not appear to be in the [employer] system will investigate with IT. No Nexplanon palpable in her arm either 06/08/2024. Code(s): Z30.09 - Encounter for other general counseling and advice on contraception Category: Medical (5) Cervical cancer screening: Comment: Due for 1st Pap this year, to be scheduled, Code(s): Z12.4 - Encounter for screening for malignant neoplasm of cervix Category: Medical (6) Nexplanon in place: Comment: Nexplanon is no longer in place 06/08/24. Patient had appointment for removal on 04/22/2023 and has clear memory of me removing it but that note is no longer in the system....? Code(s): Z97.5 - Presence of (intrauterine) contraceptive device Category: Social Hx Plan Pelvic exam done today for assessment of the discharge which appears to be yeast discussed the varying appearances of yeast she is not really symptomatic but she does have the curdy greenish tinged discharge. Reviewed self-care reviewed the conditions that can contribute to yeast. I recommend treatment with Monistat 7 [id number]. I did prescribe as but it may not be covered by her insurance and I talked with her about where to get it,. Also discussed being conscious and aware before having unprotected sex about the risk of making decisions in concert with her desires to not be I highly recommend condoms lose but I also prescribed Plan B should she need it as an emergency. She has very very sure and describes to be how I injected with lidocaine and I removed the Nexplanon last April her appointment date in chart 04/22/2023. However there was no note from that day as if visit did not occur we will investigate with IT the Nexplanon is clearly gone. Perhaps there was a loss of WIFI signal or something during charting and the visit disappeared.... Orders: Orders Bacterial Vaginosis Panel Today N89.8 - Other specified noninflammatory disorders of vagina HIV Ab/Ag Today B37.31 - Acute candidiasis of vulva and vagina, Z11.3 - Encounter for screening for infections with a predominantly sexual mode of transmission, Z98.84 - Bariatric surgery status Syphilis Screen Today B37.31 - Acute candidiasis of vulva and vagina, Z11.3 - Encounter for screening for infections with a predominantly sexual mode of transmission, Z98.84 - Bariatric surgery status CT NG by PCR Today N89.8 - Other specified noninflammatory disorders of vagina, Z20.2 - Contact with and (suspected) exposure to infections with a predominantly sexual mode of transmission Hepatitis B Surface Antigen Today B37.31 - Acute candidiasis of vulva and vagina, Z11.3 - Encounter for screening for infections with a predominantly sexual mode of transmission, Z98.84 - Bariatric surgery status Hepatitis C Antibody Today B37.31 - Acute candidiasis of vulva and vagina, Z11.3 - Encounter for screening for infections with a predominantly sexual mode of transmission, Z98.84 - Bariatric surgery status Medications: New levonorgestrel (Plan B One-Step) 1.5 mg PO ONCE 1 tab 4RF miconazole nitrate 2% (Miconazole-7) Apply 1 applicator of miconazole 7 cream into vagina every evening for 7 days. 1 appful vaginal BEDTIME 7 days 45 grams 1RF Coding Level of Care Code Est Pt Level 3 (41044) Diagnoses S/P laparoscopic sleeve gastrectomy Z98.84 Yeast infection of the vagina B37.31 Encounter for screening examination for sexually transmitted disease Z11.3 control counseling Z30.09 Cervical cancer screening Z12.[address] Z97.5
== END | disposition home or self-care (01) ==
CPT/HCPCS: 99213

== ENCOUNTER 2024-06-12 10:40 | Outpatient (REF) | payer MEDICAID, SELFPAY ==
[2024-06-12 11:02] LABS: MANUAL DIFF FLAG NO
[2024-06-12 11:29] LABS: Eosinophils Absolute Auto 0.1 X10*3/uL (0.0-0.4); Eosinophils Percent Auto 1.2 % (0-4); Hematocrit 44.1 % (37.0-47.0); Hemoglobin 14.3 g/dl (12.0-16.0); Imm Gran Abs Auto 0.01 X10*3/uL (0.00-0.03); Imm Gran Pct Auto 0.2 % (0.0-0.4); Lymphocytes Absolute Auto 1.5 X10*3/uL (1.2-4.9); Lymphocytes Percent Auto 35.2 % (20-40); Mean Corpuscular HGB Conc 32.4 g/dl (31.0-35.0); Mean Corpuscular Hemoglobin 27.3 pg (27.0-33.0); Mean Corpuscular Volume 84.2 fL (80.0-98.0); Mean Platelet Volume 8.1 fL (9.4-12.3); Monocytes Absolute Auto 0.4 X10*3/uL (0.1-1.2); Monocytes Percent Auto 9.3 % (2-11); Neutrophils Absolute Auto 2.2 x10*3/uL (2.0-8.3); Neutrophils Percent Auto 53.1 % (45-73); Platelet Count 361 X10*3/uL (160-400); Red Blood Count 5.24 X10*6/uL (4.20-5.50); Red Cell Distribution Width 13.2 % (11.0-16.0); White Blood Count 4.2 X10*3/uL (4.8-10.8)
[2024-06-12 11:35] LABS: Estimated Average Glucose 94 mg/dL; Hemoglobin A1C 104.8864 umol/L; Hemoglobin A1c % 4.9 % (<6.0); Total Hemoglobin (HGBA1C) 3540.4585 umol/L
[2024-06-12 12:46] LABS: Alanine Aminotransferase 18 U/L (0-31); Albumin Level 4.5 g/dL (3.5-5.0); Alkaline Phosphatase 61 U/L (39-117); Anion Gap 11 (12-20); Aspartate Amino Transferase 21 U/L (5-31); Bilirubin Total 1.3 mg/dL (0.0-1.0); Blood Urea Nitrogen 8 mg/dL (9-16); C Reactive Protein < 0.10 mg/dL (< or = 0.50); Calcium 9.4 mg/dL (8.4-10.2); Carbon Dioxide 28 mmol/L (22-29); Chloride 105 mmol/L (96-108); Cholesterol 180 mg/dL (<200); Estimated Glomerular Filt Rate > 60; Glucose Random 79 mg/dL (60-115); HDL Cholesterol 77 mg/dL (>40); Iron 116 mcg/dL (30-160); LDL Cholesterol Calculated 91 mg/dL (<100); Percent Iron Saturation 34 % (15-50); Sodium 140 mmol/L (135-145); Total Iron Binding Capacity 337 mcg/dL (228-428); Triglycerides 63 mg/dL (<150); Unsaturated Iron Binding 221 ug/dL
[2024-06-12 12:50] LABS: Ferritin 38 ng/mL (10-122); Insulin 4 uU/mL (2-29); TSH reflex Free T4 1.09 uIU/mL (0.32-4.0); Vitamin D 25-OH Total 29.2 ng/mL (>30)
[2024-06-12 13:10] LABS: Syphilis Screen Nonreactive (Nonreactive)
[2024-06-12 13:13] LABS: HBsAGNum1 0.34 S/CO (0.00-0.99); HIV AB/AG Nonreactive (Nonreactive); HIV Num 1 0.05 S/CO (0.00-0.99); Hepatitis B Surface Antigen Negative (Negative); ~HepC Num1 0.28 S/CO (0.00-0.79); ~Hepatitis C Antibody Nonreactive (Nonreactive)
[2024-06-12 13:28] LABS: Folate 12.7 ng/mL (> or = 4.0); Vitamin B12 543 pg/mL (200-900)
[2024-06-16 02:09] LABS: Zinc 76 mcg/dL (60-130)
[2024-06-16 16:49] LABS: Vitamin A 54 mcg/dL (38-98)
[2024-06-18 15:14] LABS: Vitamin B1 14 nmol/L (8-30)
== END 2024-06-12 10:41 | disposition home or self-care (01) ==
LOC: HO.LAB 10:40
PROVIDERS: Absent Provider Advanced Practice Midwife; Visit Provider Physician Assistant Surgical
DX: B37.31 Acute candidiasis of vulva and vagina (principal); Z11.3 Encounter for screening for infections with a predominantly sexual mode of transmission; Z98.84 Bariatric surgery status; E53.8 Deficiency of other specified B group vitamins
CPT/HCPCS: 36415; 80053; 80061; 82306; 82607; 82728; 82746; 83036; 83525; 83540; 84425; 84443; 84590; 84630; 85025; 86140; 86780; 86803; 87340; 87389

== ENCOUNTER 2024-11-13 13:12 | Outpatient (AMB) | payer SELFPAY ==
[2024-11-13 13:12] VITALS: BMI 20.6
--- NOTE | 2024-11-13 13:12 | A.OFFVIS_ITS ---
VS Expanded 11/13/24 13:12 Height 5 ft 3 in Weight 116 lb 4 oz BMI 20.6 Intake Visit Reasons: TV PO LSG 04/06/22 Allergies POLLEN Allergy (Intermediate, Uncoded 06/08/24 09:27) Sneezing Medication List - Last Reconciled 11/13/24 by EL Pierson [celebrate Rajendra +D PO BID] [celebrate mvi PO .qd] clotrimazole 1% 1 appl topical BID levonorgestrel (Plan B One-Step) 1.5 mg PO ONCE miconazole nitrate 2% (Miconazole-7) 1 appful vaginal BEDTIME 7 days HPI Comments Details: This?is a?19?yo F who is s/p LSG 04/06/2022. She continues to maintain a healthy weight. No complaints of nausea, emesis, abdominal pain or reflux, or constipation. Present meal plan includes: 2 eggs w 2 sausage belvita snack bar 3 gm pro or fairlife 26 gm rtd shake lunchables protein, rice, chicken, pasta, salad fruit (berries) Drinking 48-64 oz water Exercise plan: PF cardio-treadmill, 5 days per week, weights and treadmill/bike, 250 calories Pt has excess skin of abdomen which has become bothersome. She has rashes in skin folds which causes a burning pain. Has not tried any topical treatment yet. She notices moisture collecting in the skin folds especially now that weather is warmer. She has moisture that collects in the folds which smells unpleasant and she has to clean more frequently. She has difficulty finding clothing that fits properly without causing discomfort. Has to wear a faja at all times to help hold the excess skin in place during movement. 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 She recently got new health insurance- [employer]. Nonsmoker. [facility] Surgical History S/P laparoscopic sleeve gastrectomy Family History Mother Asthma Father No problems noted. Brother No problems noted. Brother Asthma Sister Depression Anxiety Social History Household Members: Family Household Members Other:: Mother, 2 brothers Housing: Apartment Are you a primary pharmacist critical care to a significant other at home: No Do you presently have visiting nurse or other home services: No Alcohol intake: former Patient Tobacco Use Status: Former Tobacco user Tobacco use type: Cigarette service: No Current occupational status: student Female Reproductive History Menstrual Age of Menarche: 11 Telehealth Telehealth Telehealth Platform: Telephone Location of provider rendering services: practice address Location of patient: address on file Patient Identification confirmed using: Name, : Yes Telehealth method: voice only Patient verbally consented to treatment: Yes Patient verbally consented to billing insurance company: Yes Patient informed of any privacy concerns related to visit: Yes Minutes spent on Phone/Video with Pt.: 16 Assessment & Plan Assessment & Plan (1) S/P laparoscopic sleeve gastrectomy: Code(s): Z98.84 - Bariatric surgery status Category: Surgical (2) Excess skin: Code(s): L98.7 - Excessive and redundant skin and subcutaneous tissue Category: Medical Plan Patient has done very well maintaining healthy BMI 2.5 years out from bariatric surgery. She is experiencing issues of excess skin of abdomen resulting in frequent painful, malodorous rashes. In addition she is experiencing limitations/discomfort in activities of daily living, including squatting over, which also affects her job. She requires the use of special compressive clothing at all times to try to prevent discomfort. Clotrimazole ointment ordered for rashes of excess skin. RTC 8 weeks for in person visit for physical exam. Medications: New clotrimazole 1% 1 appl topical BID 45 grams 3RF
--- OUTSIDE RECORDS SUMMARY | 2024-11-13 14:33 | XMS_ITS | Clinical Summary ---
Demographics Address [address] [place] [address] Mobile Phone Work Phone Email Address Preferred Language en Marital Status Single Yazdanism Affiliation Unknown Race Other Race Ethnic Group Unknown Author Organization [employer] Address [address] [facility] [facility] [address] [place] [address] Care Team Providers Care Galley Worker Name Role Phone Barbi Barkley NP Primary Care Provider [phone] Allergies No known active allergies Medications No [...] Encounters Date Type Department Care Team Description 10/05/2024 Travel 10/04/[address] [address] Barbi Barkley NP Chart Prep 09/28/2024 Patient Outreach [facility] [address] [place], [place] [phone] Barbi Barkley NP Pre-visit Planning (SDOH negative, Tobacco screening negative. ) 08/28/[address] [phone] Alberto Linder [place] chartprep 08/28/[address] [address] Barbi Barkley NP DCF (Spoke to pt about insurance being inactive pt stated she will call insurance to see what's going on. Explained if insurance is inactive tomorrow we will have to r/s appt /) 08/17/[address] [phone] Alberto Linder [place] rescheduled appt 08/16/[address] [address] Alberto Linder MA chartprep from Last 3 Months Immunizations Immunization Administration Dates Next Due Influenza, seasonal, injectable, [...] 88 02/15/2024 2:11 PM EDT Temperature 37.1 C (98.8 F) 02/15/2024 2:11 PM EDT Respiratory Rate 22 02/15/2024 2:11 PM EDT Oxygen Saturation 92% 02/15/2024 2:11 PM EDT Inhaled Oxygen Concentration - - Weight 52.3 kg (115 lb 6.4 oz) 02/15/2024 2:11 P M EDT Height 160 cm (5' 3 ) 02/15/2024 2:11 PM EDT Body Mass Index 20.44 02/15/2024 2:11 PM EDT Plan of Treatment Health Maintenance Due Date Last Done Comments Disability Screening 2003 Family Planning (PISQ) 2018 Meningococcal B Vaccine (1 of 2 - Standard) 2019 COVID-19 Vaccine (3 - season) 2024 11/18/2020, 10/28/2020 Pap Smear 2024 Influenza Vaccine (#1) 2024 , 03/25/2021, 02/13/2020, Additional history exists Alcohol/Substance Use Screening 02/14/2025 02/15/2024 Depression Screening 02/14/2025 02/15/2024, 02/15/20 DTaP/Tdap/Td Vaccines (7 - Td or Tdap) 05/28/2025 05/28/2015, 01/26/2008, 08/02/2005, Additional history exists Tobacco Screening 06/01/2025 06/01/2024 Chlamydia and Gonorrhea Screening 06/08/2025 06/08/2024, 03/08/2023 Lipid Panel 06/19/2025 06/19/2020 SDOH Screening 09/28/2025 09/28/2024 Zoster Vaccines (1 of 2) 2053 RSV Patients and Patients Aged 60 years or older (1 - 1-dose 75+ series) 2078 Hepatitis B Vaccines Completed 07/29/2004, 2003, 2003 HIB Vaccines Completed 10/30/2004, 08/31, 2003 Pneumococcal Vaccine: Pediatrics (0 to 5 Years) and At-Risk Patients (6 to 49) Years Aged Out 10/30/2004, 2003 No longer eligibl e based on patient's age to complete this topic IPV Vaccines Completed 01/26/2008, 07/02, 2003, Additional history exists Hepatitis A Vaccines Completed 03/16/2013, 01/28/20 10 HPV Vaccines Completed 05/28/2015, 04/01, 03/16/2013 Meningococcal Vaccine Completed 05/13/2020, 016 HIV Screening Completed 03/08/2023 Hepatitis C Screening Completed 03/08/2023 RSV under 20 months Aged Out No longe r eligible based on patient's age to complete this topic Rotavirus Vaccines Aged Out No longer eligible based on patient's age to complete this topic Procedures Procedure Name Priority Date/Time Associated Diagnosis Comments CHLAMYDIA/N. GONORRHOEAE RNA, TMA, UROGENITAL Routine 06/08/2024 12:00 AM EST HEPATITIS C AB W/REFL TO HCV RNA, [...] Recently Relevant to Health Maintenance Results * Chlamydia/N. Gonorrhoeae RNA, TMA, Urogenitial (06/08/2024 12:00 AM EST) Pathologist [facility] CT PCR NOT DETECTED Not Detect. [facility] Comment:A not detected test result does [...] psychologicalconsequences. NG PCR NOT DETECTED Not Detect. [facility] Comment:A not detected test result does [...] lead to adverse medical, social or psychologicalconsequences. 06/08/2024 06/08/2024 Narrative [facility] - 06/08/2024 6:32 PM EST Vaginal Generic External Data Provider LAB MICROBIOLOGY - GENERAL ORDERABLES Final Result Performing Organization Address [facility]/ZIP Co de Phone Number [facility] [address] [place] [phone] * Hepatitis C Antibody with Reflex to HCV, RNA, Quantitative, Real-Time PCR (03/08/2023 10:46 AM EST) Hepatitis C Antibody Nonreactive Nonreactive [facility] Comment:Antibodies to HCV no t detected; does not exclude early acuteHCV infection. Blood Venous blood specimen / Unknown 03/08/2023 10:46 AM EST 03/08/2023 2:25 PM EST Lory Shi [facility] LAB BLOOD ORDERABLES Katharina l Result Performing Organization Address [facility] Co de Phone Number [facility] [address] [place] [phone] * HIV-1/2 Antigen and Antibodies, Fourth Generation, with Reflexes (03/08/2023 10:46 AM EST) HIV AB/AG Nonreactive Nonreactive [facility] Comment:HIV-1 p24 Ag and/or HIV-1/HIV-2 Ab not detected.A test result that is nonreactive does not exclude thepossibility of exposure to or infection with HIV-1 and/orHIV-2. Nonreactive results in this assay for individualswith prior exposure to HIV-1 and/or HIV-2 may be due toantigen and antibody levels that are below the limit ofdetection of this assay.The [employer] HIV Ag/Ab Combo assay result andsupplemental assay results should be interpreted inconjunction with the patient's clinical presentation,history and other laboratory results. If the results areinconsistent with clinical evidence, additional testing issuggested to confirm the result. Blood Venous blood specimen / Unknown 03/08/2023 10:46 AM EST 03/08/2023 2:25 PM EST Lory Shi [facility] LAB BLOOD ORDERABLES Katharina l Result [facility] [address] [place] [address] [phone] * (ABNORMAL) LIPID PANEL, STANDARD (06/19/2020 1:04 PM EST) Chol/HDLC Ratio 3.3 <5.0 (calc) [facility] Cholesterol, Total 174(H) <170 mg/dL [facility] HDL Cholesterol 53 >45 mg/dL [facility] LDL Cholesterol 100 <110 mg/dL (calc) [facility] Comment: LDL-C is now calculated using the Fan-Montelongo calculation, which is a validated novel method providing better accuracy than the Friedewald equation in the estimation of LDL-C. Fan SS et al. KEON. 2013;310(19): 9681-7088 (http://education.[employer].com/faq/YZW651) Non-HDL Cholesterol 121(H) <120 mg/dL (calc) [facility] Comment: For patients with diabetes plus 1 major ASCVD risk factor, treating to a non-HDL-C goal of <100 mg/dL (LDL-C of <70 mg/dL) is considered a therapeutic option. Triglycerides 109(H) <90 mg/dL [facility] 06/19/2020 1:0 4 PM EST Pepe Jack MD LAB BLOOD ORDERABLES Final Resu lt [facility] [address] [place] [address], from Last 3 Months or Most Recently Relevant to Health Maintenance Insurance [facility] C3 Care Teams Galley Worker Relationship Specialty Start Date End Date Barbi Barkley NP [address] [place] [phone] PCP - General Family Medicine 02/24/23
== END 2024-11-13 13:27 | disposition home or self-care (01) ==
LOC: HO.HBS 13:12
PROVIDERS: PCP Pediatrics; Visit Provider Physician Assistant Surgical
DX: L98.7 Excessive and redundant skin and subcutaneous tissue (principal); Z90.3 Acquired absence of stomach [part of]; Z98.84 Bariatric surgery status
CPT/HCPCS: 98013

== ENCOUNTER 2025-03-17 13:25 | Emergency (ER) | payer OTHER, SELFPAY ==
[2025-03-17 13:30] VITALS: BP 112/55; PULSE 76; RESP 16; TEMP 36.1; O2SAT 98; BMI 21.9
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
--- OUTSIDE RECORDS SUMMARY | 2025-03-17 14:43 | XMS_ITS | Clinical Summary ---
Author Organization [facility] Address [address] [facility] [address] [place] [phone] Phone Care Team Providers Care Gear Tester Name Role Phone Pepe Jack MD Primary Care Provider Allergies No known active allergies Medications No known medications Social History Tobacco Use Types Packs/Day Years Used Date Smoking Tobacco: Never Assessed Education Answer Date Recorded Are you interested in more education? Not on christian e 06/04/2023 Are you concerned about learning? Not on file 06/04/2023 No 06/04/2023 No 06/04/2023 Digital Access Answer Date Recorded No 06/04/2023 No 06/04/2023 Reliable internet access at home? Not on file 06/04/2023 Device with a working camera? Not on file Intimate Partner Violence Answer Date R ecorded Are you denied basic needs s uch as food, clothing, or medical care? No 06/04/2023 In the past 12 months have y ou been in a relationship with a person who hurts, threatens, or tries to control you? No 06/04/2023 Are you denied basic needs s uch as food, clothing, or medical care? No 06/04/2023 In the past 12 months have y ou been in a relationship with a person who hurts, threatens, or tries to control you? No 06/04/2023 Comments Unknown Sex and Gender Information Value Date Recorded Sex Assigned at Not on file Legal Sex Female 3:04 PM EST Gender Identity Not on file Sexual Orientation Not on file Last Filed Vital Signs Vital Sign Reading Time Taken Comments Blood Pressure 119/80 06/04/2023 3:18 PM EST Pulse 75 06/04/2023 3:18 PM EST Temperature 36.7 C (98.1 F) 06/04/2023 3:18 PM EST Respiratory Rate - - Oxygen Saturation 100% 06/04/2023 3:18 PM EST Inhaled Oxygen Concentration - - Weight - - Height - - Body Mass Index - - Plan of Treatment Not on file Medical Devices Not on file Insurance [facility] C3 ACO Care Teams Gear Tester Relationship Specialty Start Date End Date Pepe Jack MD [address] [place] [address] PCP - General Pediatrics 06/04/23 Additional Source Comments The information contained in this document represents components of the legal health record. It is not the complete legal health record.[facility]
--- OUTSIDE RECORDS SUMMARY | 2025-03-17 14:43 | XMS_ITS | Encounter Summary ---
Author Organization [facility] Address [address] [facility] [address] [place] [address] Phone Care Team Providers Care File Clerk Data Entry Name Role Phone Pepe Jack MD Primary Care Provider Encounter Details Date Type Department Care Team (Late st Contact Info) Description 06/04/2023 Procedure [facility], Ct Scan - [address] [address] Social History Tobacco Use Types Packs/Day Years [...] on file Sexual Orientation Not on file documented as of this encounter Functional Status * Calculated C-SSRS Risk Score (Lifetime/Recent) Answer Date of Assessment Author No Risk Indicated 06/04/2023 3:15 PM Roula Yung RN * [place] Suicide Severity Rating Scale (Screener/Recent Self-Report) Question Answer Date of Assessment Author 1. Wish to be (Past 1 Month) No 024 3:15 PM Roula Yung RN 2. Non-Specific Active Suici marbella Thoughts (Past 1 Month) No 06/04/2023 3:15 PM Ulises Yung RN 6. Suicidal Behavior (Lifetime) No 4 3:15 PM Roula Yung RN documented as of this encounter Plan of Treatment Not on file documented as of this encounter Visit Diagnoses Not on filedocumented in this encounter Care Teams File Clerk Data Entry Relationship Specialty Start Date End Date Pepe Jack MD [address] [place] [id number] PCP - General Pediatrics 06/04/23 documented as of this encounter Additional Source Comments The information contained in this document represents components of the legal health record. It is not the complete legal health record.[facility]
[2025-03-17 15:42] VITALS: BP 101/65; PULSE 66; RESP 18; O2SAT 98
[2025-03-17 17:30] VITALS: BP 101/65; PULSE 66; RESP 18; TEMP -17.7; TEMP 0; O2SAT 98
== END 2025-03-17 17:31 | disposition home or self-care (01) ==
PROVIDERS: Emergency Provider Student in an Organized Health Care Education/Training Program; PCP Pediatrics
DX: S01.81XA Laceration without foreign body of other part of head, initial encounter (principal); V47.5XXA Car driver injured in collision with fixed or stationary object in traffic accident, initial encounter; Y93.9 Activity, unspecified; Y92.410 Unspecified street and highway as the place of occurrence of the external cause; Y99.9 Unspecified external cause status
CPT/HCPCS: 12011; 99282; 99284

== ENCOUNTER 2025-03-26 12:08 | Outpatient (REF) | payer MEDICAID, SELFPAY ==
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
--- OUTSIDE RECORDS SUMMARY | 2025-03-26 15:51 | XMS_ITS | Clinical Summary ---
Author Organization [facility] Address [address] [facility] [address] [place] [address] Phone Care Team Providers Care Geography Instructor Name Role Phone Pepe Jack MD Primary [...] Medical Devices Not on file Insurance [facility] C3 ACO Care Teams Geography Instructor Relationship Specialty Start Date End Date Pepe Jack MD [address] [place] [address] PCP - General Pediatrics 06/04/23 Additional Source Comments The information contained in this document represents components of the legal health record. It is not the complete legal health record.[facility]
--- OUTSIDE RECORDS SUMMARY | 2025-03-26 15:51 | XMS_ITS | Encounter Summary ---
Author Organization [employer] Address [address] [facility] [address] [place] [address] Care Team Providers Care Head Sawyer Name Role Phone Barbi Barkley NP Primary Care Provider [phone] Reason for Visit * Reason Onset Date Comments Chart Prep 03/25/2025 Encounter Details Date Type Department Care Team ([facility] st Contact Info) Description 03/25/2025 Telephone [facility] [address] [place] [address] Rosy Fernando FNP [address] [place] [address] Chart Prep Social History Tobacco Use Types Packs/Day Years [...] AM EDT documented as of this encounter Miscellaneous Notes * Telephone Encounter - Audra King MA - 03/25/2025 9:56 AM EST Chart Prep Labs: done from 12/05/24 Images: not applicable Referrals: not applicable Vaccines due: Covid, Flu, and MCV4 Screenings: pap smear and LMP Overdue care gaps: SBIRT, PHQ-9, APPLE-7, Disability screen, and Tobacco documented in this encounter Plan of Treatment Upcoming Encounters Date Type Department Care Team (Late st Contact Info) Description 04/15/2025 9:15 AM EST Office Visit [facility] [address] [place] [address] Barbi Barkley NP [address] [place] [address] documented as of this encounter Visit Diagnoses Not on filedocumented in this encounter Additional Health Concerns Assessment Noted Time PHQ-9 Depression Total Score: 8 02/15/20 24 3:01 PM EDT documented as of this encounter Care Teams Head Sawyer Relationship Specialty Start Date End Date Barbi Barkley NP [address] [place] [address] PCP - General Family Medicine 02/24/23 documented as of this encounter
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
--- OUTSIDE RECORDS SUMMARY | 2025-03-26 15:52 | XMS_ITS | Encounter Summary ---
Demographics Address [address] [place] [address] Mobile Phone Work Phone Email Address Preferred Language en Marital Status Single Sikh Affiliation Unknown Race Other Race Ethnic Group Unknown Author Organization [employer] Address [address] [place] [address] Care Team Providers Care Icu Nurse Name Role Phone Barbi Barkley NP Primary Care Provider [phone] Encounter Details Date Type Department Care Team (Latest Contact Info) Description 03/26/2025 Travel Social History Tobacco Use Types Packs/Day [...] Description 04/15/2025 9:15 AM EST Office Visit [facility] [address] [place] [address] Barbi Barkley NP [address] [place] [address] documented as of this encounter Visit Diagnoses Not on filedocumented in this encounter Additional Health Concerns Assessment Noted Time PHQ-9 Depression Total Score: 8 02/15/20 24 3:01 PM EDT documented as of this encounter Care Teams Icu Nurse Relationship Specialty Start Date End Date Barbi Barkley NP [address] [place] [address] PCP - General Family Medicine 02/24/23 documented as of this encounter
--- OUTSIDE RECORDS SUMMARY | 2025-03-26 15:52 | XMS_ITS | Encounter Summary ---
Author Organization [facility] Address [address] [place] [address] Phone Care Team Providers Care Phlebotomy Instructor Name Role Phone Pepe Jack MD Primary Care Provider Encounter Details Date Type Department Care Team (Late st Contact Info) Description 06/04/2023 Procedure Pass [facility], Ct Scan - [address] [address] Social History Tobacco Use Types Packs/Day Years [...] 06/04/2023 3:15 PM Roula Yung RN * [place] Suicide Severity Rating Scale (Screener/Recent Self-Report) Question [...] on filedocumented in this encounter Care Teams Phlebotomy Instructor Relationship Specialty Start Date End Date Pepe Jack MD [address] [place] [address] PCP - General Pediatrics 06/04/23 documented as of this encounter Additional Source Comments The information contained in this document represents components of the legal health record. It is not the complete legal health record.[facility]
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
== END 2025-03-26 12:09 | disposition home or self-care (01) ==
LOC: HO.HHCX 12:08
PROVIDERS: Visit Provider Nurse Practitioner Family
DX: R07.1 Chest pain on breathing (principal)
CPT/HCPCS: 71046

== ENCOUNTER → 2025-03-26 12:23 | Outpatient (BNV) | payer OTHER, SELFPAY | PROVIDERS: Visit Provider Radiology Diagnostic Ultrasound | DX: R07.9 Chest pain, unspecified (principal); V89.2XXA Person injured in unspecified motor-vehicle accident, traffic, initial encounter | CPT/HCPCS: 71046 ==

== ENCOUNTER 2025-04-10 13:20 | Outpatient (AMB) | payer OTHER, SELFPAY ==
--- NOTE | 2025-04-10 13:30 | MHC.OFFVISWM ---
VS Expanded 04/10/25 13:42 BP 96/55 L Blood Pressure Location Rt brachial Blood Pressure Position Sitting Pulse 68 Pulse Source Pulse Oximeter Temp 97.8 F Temperature Source Temporal Artery Scan Pulse Oximetry 96 Oxygen Delivery Method Room Air Height 5 ft 3 in Weight 121 lb 12.8 oz BMI 21.6 Body Fat % 22.8 Body Fat Mass 27.8 Fat Free Mass 94.0 Visceral Fat Rating 1.0 Body Water % 55.6 Body Water Mass 67.6 Muscle Mass/Score 89.0 Basal Metabolic Rate/Score 1,321 Intake Visit Reasons: (ov) PO LSG 04/06/22 Allergies POLLEN Allergy (Intermediate, Uncoded 03/17/25 13:34) Sneezing Medication List - Last Reconciled 04/10/25 by EL Pierson [celebrate Rajendra +D PO BID] [celebrate mvi PO .qd] clotrimazole 1% 1 appl topical BID levonorgestrel (Plan B One-Step) 1.5 mg PO ONCE miconazole nitrate 2% (Miconazole-7) 1 appful vaginal BEDTIME 7 days HPI Comments Details: This is a 19 yo F who is s/p LSG 04/06/2022. She continues to maintain a healthy weight. No complaints of nausea, emesis, abdominal pain or reflux, or constipation. Present meal plan includes: 2 eggs w 2 sausage belvita snack bar 3 gm pro or fairlife 26 gm rtd shake lunchables protein, rice, chicken, pasta, salad fruit (berries) Drinking 48-64 oz water Exercise plan: PF cardio-treadmill, 5 days per week, weights and treadmill/bike, 250 calories Pt has excess skin of abdomen which has become bothersome. She has rashes in skin folds which causes a burning pain. Has not tried any topical treatment yet. She notices moisture collecting in the skin folds especially now that weather is warmer. She has moisture that collects in the folds which smells unpleasant and she has to clean more frequently. She has difficulty finding clothing that fits properly without causing discomfort. Has to wear a faja at all times to help hold the excess skin in place during movement. Certain activities of daily living are impeded such as squatting down, and this impacts her at work as sometimes has to squat down during her work day. Nonsmoker. [facility] Surgical History S/P laparoscopic sleeve gastrectomy Family History Mother Asthma Father No problems noted. Brother No problems noted. Brother Asthma Sister Depression Anxiety Social History Household Members: Family Household Members Other:: Mother, 2 brothers Housing: Apartment Are you a primary animal care giver to a significant other at home: No Do you presently have visiting nurse or other home services: No Alcohol intake: former Patient Tobacco Use Status: Former Tobacco user Tobacco use type: Cigarette service: No Current occupational status: student Female Reproductive History Menstrual Age of Menarche: 11 Physical Exam Const General: cooperative, comfortable and no acute distress Orientation/consciousness: patient oriented x3 GI Other: soft, nontender, nondistended, incisions well healed, no hernia, no masses grade II pannus Neuro General: patient oriented x3 Assessment & Plan Assessment & Plan (1) S/P laparoscopic sleeve gastrectomy: Code(s): Z98.84 - Bariatric surgery status Category: Medical (2) Excess skin: Code(s): L98.7 - Excessive and redundant skin and subcutaneous tissue Category: Medical Plan Patient has done very well maintaining healthy BMI 3 years out from bariatric surgery. However her meal plan would benefit from more consistent protein intake and structure. Recommended following a meal plan from [employer]ohana especially in anticipation of possible upcoming surgery. She is experiencing issues of excess skin of abdomen resulting in frequent painful, malodorous rashes. In addition she is experiencing limitations/discomfort in activities of daily living, including squatting over, which also affects her job. She requires the use of special compressive clothing at all times to try to prevent discomfort. She has not found relief with topical prescription therapy. She would benefit from definitive treatment of panniculectomy. Photos taken today, will submit to insurance.
[2025-04-10 13:42] VITALS: BP 96/55; PULSE 68; TEMP 36.6; O2SAT 96; BMI 21.6
--- OUTSIDE RECORDS SUMMARY | 2025-04-10 20:47 | XMS_ITS | Clinical Summary ---
Author Organization [facility] Address [address] [place] [address] Phone Care Team Providers Care English Drawer Name Role Phone Pepe Jack MD Primary [...] file Medical Devices Not on file Insurance [facility] C3 ACO Care Teams English Drawer Relationship Specialty Start Date End Date Pepe Jack MD [address] [place] [address] PCP - General Pediatrics 06/04/23 Additional Source Comments The information contained in this document represents components of the legal health record. It is not the complete legal health record.[facility]
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
--- OUTSIDE RECORDS SUMMARY | 2025-04-10 20:47 | XMS_ITS | Encounter Summary ---
Author Organization [facility] Address [address] [facility] [address] [place] [address] Phone Care Team Providers Care Customer Service And Sales Consultant Name Role Phone Pepe Jack MD Primary Care Provider Encounter Details Date Type Department Care Team (Late st Contact Info) Description 06/04/2023 Procedure Pass [facility], Ct Scan - [address] [address] Social History Tobacco Use Types Packs/Day Years [...] 06/04/2023 3:15 PM Roula Yung RN * [place] Suicide Severity Rating Scale (Screener/Recent Self-Report) Question [...] on filedocumented in this encounter Care Teams Customer Service And Sales Consultant Relationship Specialty Start Date End Date Pepe Jack MD [address] [place] [id number] PCP - General Pediatrics 06/04/23 documented as of this encounter Additional Source Comments The information contained in this document represents components of the legal health record. It is not the complete legal health record.[facility]
== END 2025-04-10 13:56 | disposition home or self-care (01) ==
LOC: HO.HBS 13:20
PROVIDERS: PCP Pediatrics; Visit Provider Physician Assistant Surgical
DX: M79.3 Panniculitis, unspecified (principal); L98.7 Excessive and redundant skin and subcutaneous tissue; Z90.3 Acquired absence of stomach [part of]; Z98.84 Bariatric surgery status
CPT/HCPCS: 99214

== ENCOUNTER 2025-04-17 10:31 | Outpatient (REF) | payer OTHER, SELFPAY ==
--- OUTSIDE RECORDS SUMMARY | 2025-04-17 15:14 | XMS_ITS | Clinical Summary ---
Demographics Address [address] [place] [address] Mobile Phone Work Phone Email Address Preferred Language en Marital Status Single Holiness Affiliation Unknown Race Other Race Ethnic Group Unknown Author Organization [employer] Address [address] [facility] [address] [place] [address] Care Team Providers Care Vault Worker Name Role Phone Barbi Barkely NP Primary Care Provider [phone] Allergies No known active allergies Medications naproxen [...] Encounters Date Type Department Care Team Description 04/12/2025 Telephone [facility] D[facility] Pardo40 Barbi Barkley NP CHARTPREP 04/04/2025 Patient Outreach [facility] [place] [address] Barbi Barkley NP Pre-visit Planning (SDOH screening was completed on 09/28/2024) 03/27/2025 Results Follow-Up [facility] [place] [address] Rosy Fernando FNP XR Chest 2 Views 03/26/2025 11:00 AM EST Office Visit [facility] [place] [address] Rosy Fernando FNP Non-cardiac chest pain (Primary Dx) 03/26/2025 Travel 03/25/2025 Telephone [facility] [place] [address] Rosy Fernando FNP Chart Prep 03/22/2025 Telephone [facility] [place] [address] Barbi Barkley NP Nurse Triage 03/21/2025 Telephone [facility] [place] [address] Barbi Barkley NP Nurse Triage 02/12/2025 Telephone [facility] [place] [address] Barbi Barkley NP january recall from Last [...] 03/26/2025 11:10 AM EST Plan of Treatment Health Maintenance Due Date [...] PM EST Narrative 03/26/2025 1:22 PM EST [facility] [address] [place] [address] XRay Report Signed Patient: Luzmaria Smith Dom#: [id number] : 2005 Acct:[id number] Age/Sex: 19 / F ADM Date: 03/26/25 Loc: HHX Attending Dr: Rosy Okhipo INVASIVE CARDIOLOGIST Ordering Physician: Rosy Fernando Date of Service: 03/26/25 Procedure(s): XR chest 2V Accession Number(s): [id number] cc: [facility]; Rosy Fernando Reason for Exam: Involved in [...] by: Jesus Cardenas MD 03/26/2025 01:19 PM [facility] Dictated By: Jesus Cardenas MD Signed By: <Electronically signed by Jesus Cardenas MD in OV> 03/26/25 1319 DD/ 1246 TD/TT: 03/26/25 1250 Intellectual Property Lawyer: Procedure Note Donotuseinterpreter, Image - 03/26/2025 [place] [address] XRay Report Signed Patient: Luzmaria Smith R#: [id number] : 2005Acct:[id number] Age/Sex: 19 / FADM Date: 03/26/25 Loc: [facility].HHCX Attending Dr: Rosy SEGURA Ordering Physician: Rosy Fernando Date of Service: 03/26/25 Procedure(s): XR chest 2V Accession Number(s): [id number] cc: [facility]; Rosy Fernando Reason for Exam: Involved in [...] 03/26/25 1319 DD/ 1246 TD/TT: 03/26/25 1250 Intellectual Property Lawyer: TRINA Rosycoretta Fernando INVASIVE CARDIOLOGIST IMG XR PROCEDURES Final Result * Chlamydia/Gonorrhea Vaginal Swab ([facility]) (12/05/2024) Chlamydia Vaginal Swab Negative Negative, Indeterminate, None Detected, Invalid, Specimen unsatisfactory for evaluation, Weakly Positive, 2+ Gonorrhea Vaginal Swab Negative Negative, Indeterminate, None Detected, Invalid, Specimen unsatisfactory for evaluation, Weakly Positive, 2+ Swab Vaginal structure / Unknown 12/05/2024 Result [facility] Historical Provider LAB MICROBIOLOGY - GENERA L ORDERABLES Final Result * Hepatitis C Antibody ([facility]) (12/05/2024) Hepatitis C Ab Nonreactive Blood 12/05/2024 Historical Provider LAB BLOOD ORDERABLES Katharina l Result * HIV Ab/Ag ([facility]) (12/05/2024) HIV Ag/Ab Nonreactive Blood 12/05/2024 Historical Provider LAB BLOOD ORDERABLES Katharina l Result * (ABNORMAL) LIPID PANEL, STANDARD (06/19/2020 1:04 PM EST) Chol/HDLC Ratio 3.3 <5.0 (calc) [facility] Cholesterol, Total 174(H) <170 mg/dL [facility] HDL Cholesterol 53 >45 mg/dL [facility] LDL Cholesterol 100 <110 mg/dL (calc) [facility] Comment: LDL-C is now calculated using the Jose calculation, which is a validated novel method providing better accuracy than the Friedewald equation in the estimation of LDL-C. Fan SS et al. KEON. 2013;310(19): 1638-2249 (http://education.[employer].Candy Lab/faq/YBQ108) Non-HDL Cholesterol 121(H) <120 mg/dL (calc) [facility] Comment: For patients with diabetes plus 1 major ASCVD risk factor, treating to a non-HDL-C goal of <100 mg/dL (LDL-C of <70 mg/dL) is considered a therapeutic option. Triglycerides 109(H) <90 mg/dL [facility] 06/19/2020 1:04 PM EST Pepe Jack MD LAB BLOOD ORDERABLES Final Resu lt [facility] [address] from Last 3 Months or Most Recently Relevant to Health Maintenance Insurance [facility] Care Teams Vault Worker Relationship Specialty Start Date End Date Barbi Barkley NP [address] [place] [address] PCP - General Family Medicine 02/24/23
--- OUTSIDE RECORDS SUMMARY | 2025-04-17 15:14 | XMS_ITS | Encounter Summary ---
Author Organization [employer] Address [address] [facility] [address] [place] [address] Care Team Providers Care Gripper Machine Operator Name Role Phone Barbi Barkley NP Primary Care Provider [phone] Reason for Visit * Reason Onset Date Comments CHARTPREP 04/12/2025 Encounter Details Date Type Department Care Team ([facility] st Contact Info) Description 04/12/2025 Telephone [facility] MEDICINE [address] [place] [address] Barbi Barkley NP [address] [place] [address] CHARTPREP Social History Tobacco Use Types Packs/Day Years [...] encounter Miscellaneous Notes * Telephone Encounter - Alberto Linder MA - 04/12/2025 12:45 PM EST Chart Prep Labs: done Images: done Referrals: not applicable Vaccines due: Covid, Flu, Tdap, and MCV4 Screenings: pap smear,family planning,alcohol/substance use screening,lipid panel Overdue care gaps: SBIRT, PHQ-9, APPLE-7, and Disability screen documented in this encounter Plan of Treatment Not on file documented as of this encounter Visit Diagnoses Not on filedocumented in this encounter Additional Health Concerns Assessment Noted Time PHQ-9 Depression Total Score: 8 02/15/20 24 3:01 PM EDT documented as of this encounter Care Teams Gripper Machine Operator Relationship Specialty Start Date End Date Barbi Barkley NP [address] [place] [address] PCP - General Family Medicine 02/24/23 documented as of this encounter
[2025-04-18 02:33] LABS: Bacterial Vaginosis PCR POSITIVE (Negative); Candida Group PCR NOT DETECTED (Not Detect); Candida glab krusei PCR NOT DETECTED (Not Detect); Trichomonas vaginalis PCR NOT DETECTED (Not Detect)
[2025-04-18 03:52] LABS: CT PCR NOT DETECTED (Not Detect.); NG PCR NOT DETECTED (Not Detect.)
[2025-04-18 04:29] LABS: ~HepC Num1 0.22 S/CO (0.00-0.79)
[2025-04-18 04:30] LABS: HIV Num 1 0.06 S/CO (0.00-0.99); ~Hepatitis C Antibody Nonreactive (Nonreactive)
[2025-04-18 04:59] LABS: Syphilis Screen Nonreactive (Nonreactive)
[2025-04-18 13:35] LABS: HBsAGNum1 0.22 S/CO (0.00-0.99); Hepatitis B Surface Antigen Negative (Negative)
== END 2025-04-17 10:32 | disposition home or self-care (01) ==
LOC: HO.LNP 10:31
PROVIDERS: PCP Pediatrics; Visit Provider Advanced Practice Midwife
DX: Z12.4 Encounter for screening for malignant neoplasm of cervix (principal); Z30.09 Encounter for other general counseling and advice on contraception; Z30.011 Encounter for initial prescription of contraceptive pills; Z20.2 Contact with and (suspected) exposure to infections with a predominantly sexual mode of transmission; Z98.84 Bariatric surgery status; Z11.59 Encounter for screening for other viral diseases; Z11.4 Encounter for screening for human immunodeficiency virus [HIV]
CPT/HCPCS: 81515; 86780; 86803; 87340; 87389; 87491; 87591; 88175

== ENCOUNTER 2025-04-17 10:31 | Outpatient (AMB) | payer OTHER, SELFPAY ==
--- NOTE | 2025-04-17 10:47 | A.OFFVIS_ITS ---
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 She has been here for several visits however she has had Nexplanon for a while she says it was removed last year and she says I removed it and she recounted the visit in its entirety but the record was not visible in the system. She was given control pills after that visit and she did start them for a while but then she went off of them. She was using condoms and has been using condoms since then she did recently just pickle processor the last pack that she has a available and she is contemplating starting again so we reviewed in this visit exactly how to start and contraindications and what to watch out for. She is going to think about it but after discussion she decided it would be good to have them available to her should she decide to restart the pills so she is accepting a prescription for them for another year. She has maintained her weight loss after her bariatric surgery with which she lost over 200 lb. 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 Painting in a couple of months. [facility] Surgical History S/P laparoscopic sleeve gastrectomy Family History Mother Asthma Father No problems noted. Brother No problems noted. Brother Asthma Sister Depression Anxiety Social History Household Members: Family Household Members Other:: Mother, 2 brothers Housing: Apartment Are you a primary pet caretaker to a significant other at home: No Do you presently have visiting nurse or other home services: No Alcohol intake: former Patient Tobacco Use Status: Former Tobacco user Tobacco use type: Cigarette service: No Current occupational status: student Female Reproductive History Menstrual Age of Menarche: 11 Date of last menstrual period: 04/20/25 control method: none History of abnormal pap smear: No Physical Exam Vital Signs: Last Vital Signs BP 102/58 L 04/17/25 10:48 BMI result Body Mass Index 22.7 Const General: healthy appearing, comfortable, no acute distress, well developed and alert Nutritional Appearance: average body habitus Orientation/consciousness: patient oriented x3 Limitations: no limitations HEENT Head: Yes normocephalic Neck Neck: Yes normal visual inspection Chest Chest palpation & inspection: normal inspection of the chest Breast/axilla inspection: normal inspection of the breasts and normal inspection of the axillae Breast/axilla palpation: normal palpation of the breasts and normal palpation of the axillae Resp Effort & Inspection: normal respiratory effort GI Inspection: Yes normal to inspection, No Abdominal wall edema and No distended Palpation (GI): Soft to palpation and nontender Other: Normal external exam vagina is pink and moist pink healthy shiny nulliparous cervix is smooth mobile nontender with normal scant clear mucus uterus is small midposition to anteverted mobile nontender adnexa nontender nonenlarged and she has good tone with Kegel. General: Yes bladder normal to palpation External Female Exam: normal external appearance and normal appearance of the urethra Speculum Exam - Vagina: normal appearance of the vagina, normal palpation and normal vaginal discharge Speculum Exam - Cervix: normal appearance of the cervix, normal palpation and nontender Bimanual exam- vagina & uterus: normal bimanual exam, normal palpation, uterine size normal, bladder normal to palpation, consistency normal, normal palpation, uterine mobility normal, uterine shape normal, No Cervical tenderness present, non-tender and no cervical motion tenderness Bimanual Exam- Adnexa, other: normal adnexae, no masses, normal and No adnexal tenderness Neuro General: patient oriented x3 Assessment & Plan Assessment & Plan (1) S/P laparoscopic sleeve gastrectomy: Comment: Has maintained the weight she has lost and is doing well... Code(s): Z98.84 - Bariatric surgery status Category: Surgical (2) control counseling: Comment: Teaching and discussion of an unintended discussed. Recommend condom use at the very least offered and sent Rx for B. discussed her current goals./patient has clear memory of me removing the Nexplanon at a scheduled Nexplanon removal visit which was scheduled for 04/22/2023 that visit does not appear to be in the [employer] system will investigate with IT. No Nexplanon palpable in her arm either 06/08/2024. Code(s): Z30.09 - Encounter for other general counseling and advice on contraception Category: Medical (3) Encounter for screening examination for sexually transmitted disease: Code(s): Z11.3 - Encounter for screening for infections with a predominantly sexual mode of transmission Category: Medical (4) Cervical cancer screening: Comment: Due for 1st Pap this year, to be scheduled,; 04/17/2025 Pap done. Code(s): Z12.4 - Encounter for screening for malignant neoplasm of cervix Category: Medical (5) BCP ( control pills) initiation: Code(s): Z30.011 - Encounter for initial prescription of contraceptive pills Category: Medical (6) Well woman exam with routine gynecological exam: Code(s): Z01.419 - Encounter for gynecological examination (general) (routine) without abnormal findings Category: Medical (7) Screening for malignant neoplasm of cervix: Code(s): Z12.4 - Encounter for screening for malignant neoplasm of cervix Category: Medical Plan -----Discussed in this visit the following: healthy balanced diet, regular and consistent exercise, getting recommended health screens, doing the best she can for her particular health concerns, kegel exercises, pap smear screening and followup recommendations, mammography screening and SBE, normal changes in cycles in her life stage--- . Discussed restarting the pills she is on the fence yet but would like to have them available should she decide to start them so I am going to order another year's worth of pills for her and I reviewed how to start with the pills that she has left in the house which is 1 pack to start the at the beginning of the pack at the beginning of her period. And take 1 pill every single day at the same time every day and continue on from there. Reviewed condoms for safer sex as well She is interested in getting screened for STIs with blood work for HIV hep B hep C and syphilis so I am ordering those and she will go to the lab today. She has an appointment with her primary care provider here at the [facility] in the next couple of weeks. Otherwise we will see her in a year. Orders: Orders Pap Smear Today Z12.4 - Encounter for screening for malignant neoplasm of cervix Hepatitis C Antibody Today Z01.419 - Encounter for gynecological examination (general) (routine) without abnormal findings, Z11.3 - Encounter for screening for infections with a predominantly sexual mode of transmission, Z12.4 - Encounter for screening for malignant neoplasm of cervix, Z30.011 - Encounter for initial prescription of contraceptive pills, Z30.09 - Encounter for other general counseling and advice on contraception, Z98.84 - Bariatric surgery status HIV Ab/Ag Today Z01.419 - Encounter for gynecological examination (general) (routine) without abnormal findings, Z11.3 - Encounter for screening for infections with a predominantly sexual mode of transmission, Z12.4 - Encounter for screening for malignant neoplasm of cervix, Z30.011 - Encounter for initial prescription of contraceptive pills, Z30.09 - Encounter for other general counseling and advice on contraception, Z98.84 - Bariatric surgery status Syphilis Screen Today Z01.419 - Encounter for gynecological examination (general) (routine) without abnormal findings, Z11.3 - Encounter for screening for infections with a predominantly sexual mode of transmission, Z12.4 - Encounter for screening for malignant neoplasm of cervix, Z30.011 - Encounter for initial prescription of contraceptive pills, Z30.09 - Encounter for other general counseling and advice on contraception, Z98.84 - Bariatric surgery status Bacterial Vaginosis Panel Today Z12.4 - Encounter for screening for malignant neoplasm of cervix CT NG by PCR Vag/Cerv Today Z12.4 - Encounter for screening for malignant neoplasm of cervix Hepatitis B Surface Antigen Today Z01.419 - Encounter for gynecological examination (general) (routine) without abnormal findings, Z11.3 - Encounter for screening for infections with a predominantly sexual mode of transmission, Z12.4 - Encounter for screening for malignant neoplasm of cervix, Z30.011 - Encounter for initial prescription of contraceptive pills, Z30.09 - Encounter for other general counseling and advice on contraception, Z98.84 - Bariatric surgery status Medications: Refilled desog-e.estradiol/e.estradiol 0.15-0.02 mgx21 /0.01 mg x 5 to start w menses 1 tab PO DAILY 84 tabs 4RF Coding Level of Care Code Est Pt Prev Care 18-39y(59079) Diagnoses S/P laparoscopic sleeve gastrectomy Z98.84 control counseling Z30.09 Encounter for screening examination for sexually transmitted disease Z11.3 Cervical cancer screening Z12.4 BCP ( control pills) initiation Z30.011 Well woman exam with routine gynecological exam Z01.419 Screening for malignant neoplasm of cervix Z12.4
[2025-04-17 10:48] VITALS: BP 102/58; BMI 22.7
--- OUTSIDE RECORDS SUMMARY | 2025-04-17 13:10 | XMS_ITS | Clinical Summary ---
Author Organization [facility] Address [address] [facility] [address] [place] [address] Phone Care Team Providers Care Junior Bookkeeper Name Role Phone Pepe Jack MD Primary [...] file Medical Devices Not on file Insurance [facility] C3 ACO Care Teams Junior Bookkeeper Relationship Specialty Start Date End Date Pepe Jack MD [address] [place] [address] PCP - General Pediatrics 06/04/23 Additional Source Comments The information contained in this document represents components of the legal health record. It is not the complete legal health record.[facility]
--- OUTSIDE RECORDS SUMMARY | 2025-04-17 13:10 | XMS_ITS | Encounter Summary ---
Author Organization [facility] Address [address] [facility] [address] [place] [address] Phone Care Team Providers Care Drop Wire Builder Name Role Phone Pepe Jack MD Primary Care Provider Encounter Details Date Type Department Care Team (Late st Contact Info) Description 06/04/2023 Procedure Pass [facility], Ct Scan - [address] [address] Social History Tobacco Use Types Packs/Day Years [...] 06/04/2023 3:15 PM Roula Yung RN * [place] Suicide Severity Rating Scale (Screener/Recent Self-Report) Question [...] on filedocumented in this encounter Care Teams Drop Wire Builder Relationship Specialty Start Date End Date Pepe Jack MD [address] [place] [address] PCP - General Pediatrics 06/04/23 documented as of this encounter Additional Source Comments The information contained in this document represents components of the legal health record. It is not the complete legal health record.[facility]
== END 2025-04-17 11:37 | disposition home or self-care (01) ==
LOC: HO.HWSM 10:31
PROVIDERS: PCP Pediatrics; Visit Provider Advanced Practice Midwife
DX: Z01.419 Encounter for gynecological examination (general) (routine) without abnormal findings (principal); Z98.84 Bariatric surgery status; Z30.09 Encounter for other general counseling and advice on contraception; Z11.3 Encounter for screening for infections with a predominantly sexual mode of transmission; Z12.4 Encounter for screening for malignant neoplasm of cervix; Z30.011 Encounter for initial prescription of contraceptive pills
CPT/HCPCS: 99395; 99459